=== PATIENT | female | born 1960 | race Asian ===

== ENCOUNTER 2016-11-09 01:25 | Emergency (ER) | payer OTHER | END 2016-11-09 03:24 | disposition home or self-care (01) | DX: R07.9 Chest pain, unspecified (principal); I10 Essential (primary) hypertension; E11.9 Type 2 diabetes mellitus without complications; E03.9 Hypothyroidism, unspecified ==

== ENCOUNTER 2016-11-26 09:51 | Outpatient (CLI) | payer OTHER | END 2016-11-26 09:52 | disposition home or self-care (01) | DX: E11.9 Type 2 diabetes mellitus without complications (principal) ==

== ENCOUNTER 2017-02-23 15:13 | Outpatient (CLI) | payer OTHER ==
--- NOTE | 2017-02-24 09:33 | XRAY Report ---
TWO VIEW CHEST: 02/23/2017 CLINICAL INDICATION: Left chest wall contusion. COMPARISON: 11/09/2016. FINDINGS: Frontal and lateral views of the chest demonstrate a normal cardiac silhouette. The lungs remain clear. No effusion or pneumothorax is present. IMPRESSION: NORMAL CHEST. JOB #: [id number] EXT JOB #:[id number]
== END 2017-02-23 15:14 | disposition home or self-care (01) ==
LOC: DI.N 15:13
PROVIDERS: ATTEND Family Medicine
DX: S20.222D Contusion of left back wall of thorax, subsequent encounter (principal)
CPT/HCPCS: 71020

== ENCOUNTER 2017-03-03 13:03 | Outpatient (CLI) | payer OTHER ==
[2017-03-03 19:32] LABS: CALCIUM 9.6 mg/dL (8.5-10.3); CREATININE 0.9 mg/dL (0.4-1.0)
[2017-03-03 20:36] LABS: HEMOGLOBIN A1C 0.7 g/dL
== END 2017-03-03 23:59 | disposition home or self-care (01) ==
LOC: LAB.N 13:03
PROVIDERS: ATTEND Family Medicine
DX: E11.9 Type 2 diabetes mellitus without complications (principal)
CPT/HCPCS: 36415; 80048; 83036

== ENCOUNTER 2017-06-20 14:58 | Outpatient (CLI) | payer OTHER ==
[2017-06-20 13:24] LABS: HEMOGLOBIN A1C 0.64 g/dL
[2017-06-20 13:30] LABS: THYROID STIMULATING HORMONE 0.93 uIU/mL (0.34-5.60)
[2017-06-20 13:31] LABS: CALCIUM 9.5 mg/dL (8.5-10.3); CREATININE 1.1 mg/dL (0.4-1.0); POTASSIUM 3.7 mmol/L (3.5-5.0)
== END 2017-06-20 14:59 | disposition home or self-care (01) ==
LOC: LAB.N 14:58
PROVIDERS: ATTEND Family Medicine
DX: E11.9 Type 2 diabetes mellitus without complications (principal); E03.9 Hypothyroidism, unspecified
CPT/HCPCS: 36415; 80048; 83036; 84439; 84443

== ENCOUNTER 2017-10-18 15:27 | Outpatient (CLI) | payer OTHER ==
[2017-10-18 19:23] LABS: CALCIUM 9.2 mg/dL (8.5-10.3); CREATININE 0.9 mg/dL (0.4-1.0)
[2017-10-18 19:34] LABS: HB2 TOTAL 14.5 g/dL; HEMOGLOBIN A1C 0.64 g/dL; HEMOGLOBIN A1C % 6.2 % (4.6-6.2)
== END 2017-10-18 15:28 ==
LOC: LAB.N 15:27
PROVIDERS: ATTEND Family Medicine
DX: E11.9 Type 2 diabetes mellitus without complications (principal)
CPT/HCPCS: 36415; 80048; 83036

== ENCOUNTER 2018-01-27 13:01 | Outpatient (CLI) | payer OTHER ==
[2018-01-27 14:03] LABS: HEMOGLOBIN A1C 0.69 g/dL; HEMOGLOBIN A1C % 6.4 % (4.6-6.2)
[2018-01-27 14:21] LABS: CALCIUM 9.5 mg/dL (8.5-10.3); CREATININE 0.9 mg/dL (0.4-1.0)
[2018-01-27 15:10] LABS: THYROID STIMULATING HORMONE 2.27 uIU/mL (0.34-5.60)
[2018-01-27 15:12] LABS: FREE T4 (FREE THYROXINE) 0.88 ng/dL (0.58-1.64)
== END 2018-01-27 13:02 | disposition home or self-care (01) ==
LOC: LAB 13:01
PROVIDERS: ATTEND Family Medicine
DX: E03.9 Hypothyroidism, unspecified (principal); E11.9 Type 2 diabetes mellitus without complications
CPT/HCPCS: 36415; 80048; 83036; 84439; 84443

== ENCOUNTER 2018-05-03 13:56 | Outpatient (CLI) | payer OTHER ==
[2018-05-03 19:11] LABS: CALCIUM 9.5 mg/dL (8.5-10.3); CREATININE 0.9 mg/dL (0.4-1.0)
[2018-05-03 20:58] LABS: HB2 TOTAL 14.7 g/dL; HEMOGLOBIN A1C 0.67 g/dL; HEMOGLOBIN A1C % 6.3 % (4.6-6.2)
== END 2018-05-03 13:57 ==
LOC: LAB.N 13:56
PROVIDERS: ATTEND Family Medicine
DX: E11.9 Type 2 diabetes mellitus without complications (principal)
CPT/HCPCS: 36415; 80048; 83036

== ENCOUNTER 2018-08-11 07:59 | Outpatient (CLI) | payer OTHER ==
[2018-08-11 09:02] LABS: CALCIUM 9.6 mg/dL (8.5-10.3); CREATININE 0.9 mg/dL (0.4-1.0)
[2018-08-11 09:10] LABS: HEMOGLOBIN A1C 0.75 g/dL; HEMOGLOBIN A1C % 6.4 % (4.6-6.2)
[2018-08-11 09:23] LABS: THYROID STIMULATING HORMONE 2.37 uIU/mL (0.34-5.60)
== END 2018-08-11 08:00 | disposition home or self-care (01) ==
LOC: LAB 07:59
PROVIDERS: ATTEND Nurse Practitioner
DX: E11.9 Type 2 diabetes mellitus without complications (principal); E03.9 Hypothyroidism, unspecified; C73 Malignant neoplasm of thyroid gland; E89.0 Postprocedural hypothyroidism
CPT/HCPCS: 36415; 80048; 83036; 84432; 84439; 84443; 86800

== ENCOUNTER 2018-12-01 06:35 | Outpatient (CLI) | payer OTHER ==
[2018-12-01 07:10] LABS: CALCIUM 9.1 mg/dL (8.5-10.3); CREATININE 0.8 mg/dL (0.4-1.0)
[2018-12-01 07:19] LABS: HEMOGLOBIN A1C 0.69 g/dL; HEMOGLOBIN A1C % 6.4 % (4.6-6.2)
== END 2018-12-01 06:36 | disposition home or self-care (01) ==
LOC: LAB 06:35
PROVIDERS: ATTEND Family Medicine
DX: E11.9 Type 2 diabetes mellitus without complications (principal)
CPT/HCPCS: 36415; 80048; 83036

== ENCOUNTER 2019-01-16 15:41 | Outpatient (CLI) | payer OTHER ==
--- NOTE | 2019-01-17 09:26 | Mammography Report ---
Reason: MAMMOGRAPHIC SCREENING FOR BREAST CANCER Procedure Date: 01/16/2019 Accession Number: [id number] / [id number] Procedure: SHON - Screening Mammo w/Jr CPT Code: FULL RESULT: EXAM: Screening Mammo w/Jr DATE: 01/16/2019 4:19 PM CLINICAL HISTORY: Screening encounter. History of right breast biopsy in 2011, negative pathology results. TECHNIQUE: (B) - Bilateral CC and MLO views were obtained. COMPARISON: 12/08/2015 through 06/08/2012. PARENCHYMAL PATTERN: (D) - The breast(s) demonstrate(s) heterogeneously dense fibroglandular parenchyma. FINDINGS: A biopsy clip in the right breast is stable. There are coarse typically benign calcifications. There are no suspicious masses, calcifications, or areas of distortion. IMPRESSION: Benign findings. BI-RADS category 2. RECOMMENDATION: (ANNUAL) - Recommend routine annual screening mammography. BI-RADS CATEGORY: (2) - Benign Findings. STANDARD QUALIFYING STATEMENTS: 1. This examination was not reviewed with the aid of Computer-Aided Detection (CAD). 2. A negative or benign imaging report should not preclude biopsy if clinically suspicious findings are present. 3. Dense breasts may obscure an underlying neoplasm. 4. This examination was reviewed with the aid of 3D breast imaging (tomosynthesis).
== END 2019-01-16 15:42 | disposition home or self-care (01) ==
LOC: DI 15:41
PROVIDERS: ATTEND Nurse Practitioner
DX: Z12.31 Encounter for screening mammogram for malignant neoplasm of breast (principal)
CPT/HCPCS: 77063; 77067

== ENCOUNTER 2019-06-15 08:59 | Outpatient (CLI) | payer OTHER ==
[2019-06-15 09:26] LABS: CALCIUM 9.7 mg/dL (8.5-10.3)
[2019-06-15 09:51] LABS: CREATININE,URINE 119.9 mg/dL; HEMOGLOBIN A1C 0.7 g/dL; HEMOGLOBIN A1C % 6.2 % (4.6-6.2); MICROALBUM/CREATININE RATIO,UR 12.5 ug/mg (<30.0); MICROALBUMIN,URINE 1.5 mg/dL (0-300.0)
== END 2019-06-15 09:00 | disposition home or self-care (01) ==
LOC: LAB 08:59
PROVIDERS: ATTEND Family Medicine
DX: E11.9 Type 2 diabetes mellitus without complications (principal); E03.9 Hypothyroidism, unspecified
CPT/HCPCS: 36415; 80048; 82043; 82570; 83036; 84443

== ENCOUNTER 2019-12-16 04:33 | Emergency (ER) | payer OTHER ==
[2019-12-16 04:56] LABS: BASOPHILS # (AUTO) 0.1 10^3/uL (0.0-0.1); BASOPHILS % (AUTO) 0.8 %; EOSINOPHILS # (AUTO) 0.3 10^3/uL (0.0-0.7); EOSINOPHILS % (AUTO) 3.4 %; LYMPHOCYTES # (AUTO) 2.7 10^3/uL (1.5-3.5); LYMPHOCYTES % (AUTO) 34.9 %; MEAN CORPUSCULAR HEMOGLOBIN 30.6 pg (27.0-31.0); MEAN CORPUSCULAR HGB CONC 33.7 g/dL (32.0-36.0); MEAN CORPUSCULAR VOLUME 90.8 fL (81.0-99.0); MEAN PLATELET VOLUME 9.3 fL (7.9-10.8); MONOCYTES # (AUTO) 0.7 10^3/uL (0.0-1.0); MONOCYTES % (AUTO) 8.3 %; NEUTROPHILS # (AUTO) 4.1 10^3/uL (1.5-6.6); NEUTROPHILS % (AUTO) 52.2 %; PLT - PLATELET COUNT 203 10^3/uL (130-450); RED CELL DISTRIBUTION WIDTH 12.3 % (12.0-15.0); WHITE BLOOD COUNT 7.9 x10^3/uL (4.8-10.8)
[2019-12-16] MEDS ORDERED: diazePAM INJ 5 MG/ML SYRINGE IVP STA (05:04)
[2019-12-16] MEDS ORDERED: SODIUM CHLORIDE 0.9% 1,000 ML IV ONE (05:04)
[2019-12-16 05:09] LABS: ALBUMIN 4.4 g/dL (3.2-5.5); ALBUMIN/GLOBULIN RATIO 1.1 (1.0-2.2); CALCIUM 9.2 mg/dL (8.5-10.3); CREATININE 0.8 mg/dL (0.4-1.0); TOTAL PROTEIN 8.5 g/dL (6.7-8.2)
[2019-12-16] MEDS ORDERED: ONDANSETRON 4 MG/2 ML VIAL IVP STA (06:05)
[2019-12-16] MEDS ORDERED: MECLIZINE 12.5 MG TABLET PO STA (06:05)
--- NOTE | 2019-12-16 06:08 | CT Report ---
Reason: vertigo Procedure Date: 12/16/2019 Accession Number: [id number] / [id number] Procedure: CT - HEAD WO CPT Code: Final Report FULL RESULT: EXAM: CT HEAD EXAM DATE: 12/16/2019 05:56 AM. CLINICAL HISTORY: Vertigo. COMPARISON: CT HEAD W/O 11/09/2013. TECHNIQUE: Multiaxial CT images were obtained from the foramen magnum to the vertex. Reformats: Sagittal and coronal. IV contrast: None. In accordance with CT protocol optimization, one or more of the following dose reduction techniques were utilized for this exam: automated exposure control, adjustment of mA and/or KV based on patient size, or use of iterative reconstructive technique. FINDINGS: Parenchyma: No intraparenchymal hemorrhage. No evidence of mass, midline shift, or CT findings of infarction. Hurst-white differentiation is distinct. Extraaxial Spaces: Normal for age. No subdural or epidural collections identified. Ventricles: Normal in size and position. Sinuses and Orbits: Imaged paranasal sinuses, orbits, and mastoids show no significant abnormality. Bones: No evidence of fracture or calvarial defect. IMPRESSION: Normal head CT. RADIA
--- NOTE | 2019-12-16 06:35 | ED Physician Documentation ---
History of Present Illness - Stated complaint Stated Complaint: DIZZY - Chief complaint Chief Complaint: Neuro - History obtained from History obtained from: Patient - Additonal information Additional information: Patient comes emergency department complaining of a feeling of "dizziness" that started when she got up to go the bathroom. Patient states that she has never had anything like this before. She is feels as though the room is spinning, and states it is especially bad when she gets up or when she turns her head to either side. Patient states that she does not have any weakness in her arms or legs. No difficulty with coordination, other than that she is completely disoriented when the vertigo occurs. Patient denies nausea or vomiting. No chest pain. Patient is not short of breath, but states that she did begin to feel anxious when the dizziness occurred, and she states that that did make her feel somewhat short of breath. Patient denies any other complaints at this time. Review of Systems Ten Systems: 10 systems reviewed and negative Constitutional: reports: Reviewed and negative Eyes: reports: Reviewed and negative Ears: reports: Reviewed and negative Nose: reports: Reviewed and negative Throat: reports: Reviewed and negative Cardiac: reports: Reviewed and negative Respiratory: reports: Reviewed and negative GI: reports: Reviewed and negative : reports: Reviewed and negative Skin: reports: Reviewed and negative Musculoskeletal: reports: Reviewed and negative Neurologic: reports: Other (Vertigo) Psychiatric: reports: Reviewed and negative Endocrine: reports: Reviewed and negative Immunocompromised: reports: Reviewed and negative PD PAST MEDICAL HISTORY - Past Medical History Cardiovascular: Hypertension Endocrine/Autoimmune: Type 2 diabetes, HyPOthyroidism Psych: Eating disorder Musculoskeletal: Chronic back pain - Past Surgical History Past Surgical History: Yes - Present Medications Home Medications: Ambulatory Orders Medication Instructions Recorded Confirmed Cholecalciferol (Vitamin D3) 2,000 unit PO DAILY 03/01/13 12/05/15 [Vitamin D] Ibuprofen 600 mg PO Q8HR PRN 03/01/13 12/05/15 Levothyroxine [Synthroid] 88 mcg PO QDAC 03/01/13 12/05/15 Metoprolol Succinate 12.5 mg PO BID 03/01/13 12/05/15 Ondansetron Odt [Zofran] 4 mg TL Q6H PRN #10 tablet 12/05/15 metFORMIN [Glucophage] 500 mg PO DAILY 12/05/15 12/05/15 LORazepam [Ativan] 0.5 - 1 mg PO Q6H PRN #20 tablet 11/09/16 Meclizine [Antivert] 25 mg PO Q6H PRN 10 Days #40 tablet 12/16/19 - Allergies Allergies/Adverse Reactions: Allergies Allergy/AdvReac Type Severity Reaction Status Date / Time No Known Drug Allergies Allergy Verified 11/09/16 01:38 - Social History Does the pt smoke?: No Smoking Status: Never smoker Does the pt drink ETOH?: No Does the pt have substance abuse?: No - Immunizations Immunizations are current?: Yes - POLST Patient has POLST: No PD ED PE NORMAL - Vitals Vital signs reviewed: Yes - General General: Alert and oriented X 3, No acute distress - HEENT HEENT: Atraumatic, PERRL, EOMI, Moist mucous membranes - Neck Neck: Supple, no meningeal sign - Cardiac Cardiac: RRR, No murmur - Respiratory Respiratory: No respiratory distress, Clear bilaterally - Abdomen Abdomen: Soft, Non tender, Non distended - Derm Derm: Warm and dry - Extremities Extremities: No deformity, Normal ROM s pain, No edema, No calf tenderness / cord - Neuro Neuro: Alert and oriented X 3, jail keeper 2-12 intact, No motor deficit, No sensory deficit, Normal speech, Other (Patient complains of vertigo when she is brought to a sitting position from supine.) - Psych Psych: Normal mood, Normal affect Results - Vitals Vitals: Oxygen O2 Source Room air - Labs Labs: Laboratory Tests 12/16/19 12/16/19 04:50 04:50 WBC 7.9 RBC 4.90 Hgb 15.0 Hct 44.5 MCV 90.8 MCH 30.6 MCHC 33.7 RDW 12.3 Plt Count 203 MPV 9.3 Neut # (Auto) 4.1 Lymph # (Auto) 2.7 [place] # (Auto) 0.7 Eos # (Auto) 0.3 Baso # (Auto) 0.1 Absolute Nucleated RBC 0.00 Nucleated RBC % 0.0 Sodium 139 Potassium 3.6 Chloride 105 Carbon Dioxide 26 Anion Gap 8.0 BUN 20 Creatinine 0.8 Estimated GFR (MDRD) 74 L Glucose 132 H Calcium 9.2 Total Bilirubin 1.0 AST 34 ALT 30 Alkaline Phosphatase 48 Total Protein 8.5 H Albumin 4.4 Globulin 4.1 Albumin/Globulin Ratio 1.1 Lipase 52 H - Rads (name of study) CT head Radiology: Final report received, EMP read indepedently, See rad report (Negative head CT.) PD MEDICAL DECISION MAKING - ED course Complexity details: reviewed results, re-evaluated patient, considered differential, d/w patient ED course: Patient was evaluated with labs and CT scan of the head, which were unremarkable. She was treated first with IV fluids and Valium and then given a p.o. dose of meclizine. The patient reported feeling much better and reported complete resolution of her vertigo. She was able to ambulate in the emergency department without difficulty and without assistance. I discussed with her that her symptoms are most consistent with a benign positional vertigo. We have discussed the usual etiologies of this as well as the timeline for resolution. I have prescribed meclizine for her to have at home. Patient's will drive her home. We have discussed the usual indications for return. Departure - Departure Disposition: Home, Self Care Clinical Impression: Benign paroxysmal positional vertigo Qualifiers: Laterality: unspecified laterality Qualified Code(s): H81.10 - Benign paroxysmal vertigo, unspecified ear Condition: Good Instructions: ED BPV Vertigo Prescriptions: Meclizine [Antivert] 25 mg PO Q6H PRN 10 Days #40 tablet PRN Reason: Dizziness Comments: Your labs look good. Your CT scan does not show any sign of a stroke. Most likely, your positional dizziness is caused by a common condition of the inner ear, in which calcium deposits way on the nerves and cause them to send in appropriate signals of movement to the brain.This is a fairly common condition, and specially in patients over 50. Fortunately, the episodes of dizziness rarely last more than a week or two. You may take the medication prescribed, as needed for the dizziness. Discharge Date/Time: 12/16/19 06:48
[2019-12-16 06:49] VITALS: BP 154/80
== END 2019-12-16 06:48 | disposition home or self-care (01) ==
LOC: ED 04:33
DX: H81.10 Benign paroxysmal vertigo, unspecified ear (principal); I10 Essential (primary) hypertension; E11.9 Type 2 diabetes mellitus without complications; Z79.84 Long term (current) use of oral hypoglycemic drugs
CPT/HCPCS: 36415; 70450; 80053; 83690; 85025; 93005; 96361; 96374; 96375; 99283; 99284; A9270

== ENCOUNTER 2020-01-17 09:00 | Outpatient (CLI) | payer OTHER ==
[2020-01-17 13:20] LABS: BASOPHILS % (AUTO) 0.7 %; EOSINOPHILS # (AUTO) 0.2 10^3/uL (0.0-0.7); EOSINOPHILS % (AUTO) 3.7 %; HGB - HEMOGLOBIN 14.4 g/dL (12.0-16.0); LYMPHOCYTES # (AUTO) 1.9 10^3/uL (1.5-3.5); LYMPHOCYTES % (AUTO) 32.3 %; MEAN CORPUSCULAR HEMOGLOBIN 29.4 pg (27.0-31.0); MEAN CORPUSCULAR HGB CONC 32.2 g/dL (32.0-36.0); MEAN CORPUSCULAR VOLUME 91.2 fL (81.0-99.0); MEAN PLATELET VOLUME 10.2 fL (7.9-10.8); MICROALBUM/CREATININE RATIO,UR 19.2 ug/mg (<30.0); MICROALBUMIN,URINE 1.5 mg/dL (0-300.0); MONOCYTES # (AUTO) 0.5 10^3/uL (0.0-1.0); MONOCYTES % (AUTO) 8.7 %; NEUTROPHILS # (AUTO) 3.1 10^3/uL (1.5-6.6); NEUTROPHILS % (AUTO) 54.3 %; PLT - PLATELET COUNT 216 10^3/uL (130-450); RED CELL DISTRIBUTION WIDTH 12.8 % (12.0-15.0); WHITE BLOOD COUNT 5.8 x10^3/uL (4.8-10.8)
[2020-01-17 13:43] LABS: HB2 TOTAL 15.4 g/dL; HEMOGLOBIN A1C 0.67 g/dL; HEMOGLOBIN A1C % 6.1 % (4.6-6.2)
[2020-01-17 13:49] LABS: BUN - BLOOD UREA NITROGEN 22 mg/dL (6-20); CALCIUM 9.6 mg/dL (8.5-10.3); CARBON DIOXIDE - CO2 28 mmol/L (21-32); CHLORIDE 104 mmol/L (101-111); CHOLESTEROL 210 mg/dL; CREATININE 0.9 mg/dL (0.4-1.0); GLUCOSE 102 mg/dL (70-100); HDL CHOLESTEROL 52 mg/dL; LDL CHOLESTEROL,CALCULATED 140 mg/dL; LDL/HDL RATIO 2.7 (<4.4); SODIUM 137 mmol/L (135-145); VLDL CHOLESTEROL 18 mg/dL
== END 2020-01-17 23:59 | disposition home or self-care (01) ==
LOC: LAB.WCP 09:00
PROVIDERS: ATTEND Family Medicine
DX: E11.9 Type 2 diabetes mellitus without complications (principal); R00.2 Palpitations
CPT/HCPCS: 36415; 80048; 80061; 82043; 82570; 83036; 83721; 85025

== ENCOUNTER 2020-03-09 03:42 | Emergency (ER) | payer OTHER ==
--- NOTE | 2020-03-09 03:52 | ED Physician Documentation ---
PD HPI ABD PAIN - Stated complaint Stated Complaint: VOMITING/AB PX - History obtained from History obtained from: Patient, Family - History of Present Illness Timing - onset: Last night Timing - details: Abrupt onset Pain level now: 3 Quality: Cramping Location: All over / everywhere Radiation: Other (no radiation) Improved by: Other (nothing) Worsened by: Palpation Associated symptoms: Nausea, Vomiting, Diarrhea. No: Fever, Melena, Dean tochezia Recently seen: Not recently seen Review of Systems Constitutional: denies: Fever, Chills, Sweats Cardiac: reports: Reviewed and negative Respiratory: reports: Reviewed and negative GI: reports: Abdominal Pain, Nausea, Vomiting, Diarrhea. denies: Abdominal Swelling, Hematemesis, Bloody / black stool : denies: Dysuria, Frequency Musculoskeletal: denies: Back pain PD PAST MEDICAL HISTORY - Past Medical History Cardiovascular: Hypertension Endocrine/Autoimmune: Type 2 diabetes, HyPOthyroidism Psych: Eating disorder Musculoskeletal: Chronic back pain - Past Surgical History Past Surgical History: Yes - Present Medications Home Medications: Ambulatory Orders Medication Instructions Recorded Confirmed Cholecalciferol (Vitamin D3) 2,000 unit PO DAILY 03/01/13 12/05/15 [Vitamin D] Ibuprofen 600 mg PO Q8HR PRN 03/01/13 12/05/15 Levothyroxine [Synthroid] 88 mcg PO QDAC 03/01/13 12/05/15 Metoprolol Succinate 12.5 mg PO BID 03/01/13 12/05/15 Ondansetron Odt [Zofran] 4 mg TL Q6H PRN #10 tablet 12/05/15 metFORMIN [Glucophage] 500 mg PO DAILY 12/05/15 12/05/15 LORazepam [Ativan] 0.5 - 1 mg PO Q6H PRN #20 tablet 11/09/16 Meclizine [Antivert] 25 mg PO Q6H PRN 10 Days #40 tablet 12/16/19 Diphenoxylate/Atropine [Lomotil] 1 each PO QID PRN #10 tablet 03/09/20 Ondansetron Odt [Zofran] 4 mg TL Q6H PRN #10 tablet 03/09/20 - Allergies Allergies/Adverse Reactions: Allergies Allergy/AdvReac Type Severity Reaction Status Date / Time No Known Drug Allergies Allergy Verified 11/09/16 01:38 - Social History Does the pt smoke?: No Smoking Status: Never smoker Does the pt drink ETOH?: No Does the pt have substance abuse?: No - Immunizations Immunizations are current?: Yes - POLST Patient has POLST: No PD ED PE NORMAL - Vitals Vital signs reviewed: Yes - General General: Alert and oriented X 3, No acute distress, Well developed/nourished - HEENT HEENT: Moist mucous membranes - Neck Neck: Supple, no meningeal sign - Cardiac Cardiac: RRR, No murmur - Respiratory Respiratory: No respiratory distress, Clear bilaterally - Abdomen Abdomen: Soft, Non distended, Other (mild TTP across lower abdomen, most pronounced LLQ; no guarding , no rebound) - Back Back: No CVA TTP - Derm Derm: Normal color, Warm and dry, No rash - Extremities Extremities: No edema Results - Vitals Vitals: Vital Signs - 24 hr 03/09/20 03/09/20 03:45 06:30 Temperature 36.3 C L Heart Rate 88 72 Respiratory 18 16 Rate Blood Pressure 175/67 H 168/101 H O2 Saturation 98 97 Oxygen O2 Source Room air - Labs Labs: Laboratory Tests 03/09/20 03/09/20 03/09/20 04:05 04:05 04:05 WBC 19.8 H RBC 4.90 Hgb 15.2 Hct 44.7 MCV 91.2 MCH 31.0 MCHC 34.0 RDW 12.6 Plt Count 218 MPV 9.5 Neut # (Auto) 17.0 H Lymph # (Auto) 1.3 L [place] # (Auto) 1.1 H Eos # (Auto) 0.2 Baso # (Auto) 0.1 Absolute Nucleated RBC 0.00 Nucleated RBC % 0.0 Sodium 138 Potassium 3.4 L Chloride 103 Carbon Dioxide 25 Anion Gap 10.0 BUN 17 Creatinine 1.1 H Estimated GFR (MDRD) 51 L Glucose 134 H Calcium 9.7 Total Bilirubin 0.7 AST 27 ALT 29 Alkaline Phosphatase 46 Total Protein 8.0 Albumin 4.3 Globulin 3.7 Albumin/Globulin Ratio 1.2 Lipase 57 H Urine Color YELLOW Urine Clarity CLEAR Urine pH 5.0 Ur Specific [place] >=1.030 H Urine Protein NEGATIVE Urine Glucose (UA) NEGATIVE Urine Ketones NEGATIVE Urine Occult Blood SMALL H Urine Nitrite NEGATIVE Urine Bilirubin NEGATIVE Urine Urobilinogen 0.2 (NORMAL) Ur Leukocyte Esterase SMALL H Urine RBC 0-5 Urine WBC 4-5 Ur Squamous Epith Cells MOD Squamous H Urine Bacteria Few Urine Yeast PRESENT Ur Microscopic Review INDICATED Urine Culture Comments NOT INDICATED - Rads (name of study) CT A/P Radiology: Prelim report reviewed, See rad report PD MEDICAL DECISION MAKING - ED course Complexity details: reviewed results, re-evaluated patient, considered differential, d/w patient Departure - Departure Disposition: 01 Home, Self Care Clinical Impression: Diarrhea Condition: Good Instructions: ED Diet Vomiting Diarrhea, ED Vomiting Diarrhea Nonspecific Ad Follow-Up: LUCAS RIVERA MD [Primary Care Provider] - Within 1 week Prescriptions: Diphenoxylate/Atropine [Lomotil] 1 each PO QID PRN #10 tablet PRN Reason: Diarrhea Ondansetron Odt [Zofran] 4 mg TL Q6H PRN #10 tablet PRN Reason: Nausea / Vomiting Forms: Activity restrictions Discharge Date/Time: 03/09/20 06:30
[2020-03-09] MEDS ORDERED: ONDANSETRON 4 MG/2 ML VIAL IVP STA (04:22)
[2020-03-09] MEDS ORDERED: SODIUM CHLORIDE 0.9% 1,000 ML IV STA (04:22)
[2020-03-09] MEDS ORDERED: KETOROLAC 30 MG/ML VIAL IVP STA (04:22)
[2020-03-09 04:31] LABS: BASOPHILS # (AUTO) 0.1 10^3/uL (0.0-0.1); BASOPHILS % (AUTO) 0.4 %; EOSINOPHILS # (AUTO) 0.2 10^3/uL (0.0-0.7); HGB - HEMOGLOBIN 15.2 g/dL (12.0-16.0); LYMPHOCYTES # (AUTO) 1.3 10^3/uL (1.5-3.5); LYMPHOCYTES % (AUTO) 6.5 %; MEAN CORPUSCULAR VOLUME 91.2 fL (81.0-99.0); MEAN PLATELET VOLUME 9.5 fL (7.9-10.8); MONOCYTES # (AUTO) 1.1 10^3/uL (0.0-1.0); MONOCYTES % (AUTO) 5.7 %; NEUTROPHILS % (AUTO) 85.8 %; PLT - PLATELET COUNT 218 10^3/uL (130-450); RED CELL DISTRIBUTION WIDTH 12.6 % (12.0-15.0); WHITE BLOOD COUNT 19.8 x10^3/uL (4.8-10.8)
[2020-03-09 04:36] LABS: BILIRUBIN,URINE NEGATIVE (NEGATIVE); GLUCOSE, URINE (UA) NEGATIVE (NEGATIVE); KETONES,URINE (UA) NEGATIVE (NEGATIVE); LEUKOCYTE ESTERASE, URINE SMALL (NEGATIVE); NITRITE,URINE NEGATIVE (NEGATIVE); OCCULT BLOOD,URINE SMALL (NEGATIVE); PROTEIN,URINE NEGATIVE (NEGATIVE); UROBILINOGEN,URINE 0.2 (NORMAL) E.U./dL (NORMAL)
[2020-03-09 04:39] LABS: CLARITY,URINE CLEAR (CLEAR)
[2020-03-09] MEDS ORDERED: IOVERSOL 320 100 ML VIAL IVP ONE ×2 (04:40→05:33)
[2020-03-09 04:48] LABS: ALBUMIN 4.3 g/dL (3.2-5.5); ALBUMIN/GLOBULIN RATIO 1.2 (1.0-2.2); BILIRUBIN,TOTAL 0.7 mg/dL (0.2-1.0); CALCIUM 9.7 mg/dL (8.5-10.3); CREATININE 1.1 mg/dL (0.4-1.0)
[2020-03-09 04:57] LABS: BACTERIA,URINE Few /HPF (None Seen); RBC,URINE 0-5 /HPF (0-5); SQUAMOUS EPITHELIAL CELL,UR MOD Squamous (<= Few)
[2020-03-09 04:58] LABS: YEAST,URINE PRESENT
[2020-03-09] MEDS ORDERED: DIPHENOX/ATROPINE 2.5/0.025 MG TABLET PO STA (06:19)
[2020-03-09 06:30] VITALS: BP 168/101
--- NOTE | 2020-03-09 08:48 | CT Report ---
PROCEDURE: Abdomen/Pelvis W INDICATIONS: abd. pain, LLQ CONTRAST: IV CONTRAST: Optiray 320 ml: 100 PO CONTRAST: *NO PO CONTRAST TECHNIQUE: After the administration of oral and intravenous contrast, 5 mm thick sections acquired from the diap hragms to the symphysis. 5 mm thick coronal and sagittal reformats were acquired. For radiation dos e reduction, the following was used: automated exposure control, adjustment of mA and/or kV accordin g to patient size. COMPARISON: None. FINDINGS: Image quality: Adequate. There is respiratory motion throughout much of the exam.. ABDOMEN: Lung bases: Lung bases are clear given respiratory motion to the lower lungs. Heart size is normal. Small hiatal hernia is present. Solid organs: Liver and spleen are normal in size and enhancement. Gallbladder is unremarkable Sukhjinder iary system is non dilated. Pancreas enhances normally. No adrenal nodules. Kidneys demonstrate no rmal size and enhancement, without hydronephrosis. There is an exophytic 2.5 cm cyst arising from th e right kidney. Peritoneum and bowel: Bowel loops demonstrate normal wall thickness and caliber. No free fluid or a ir. Nodes and vessels: No retroperitoneal or mesenteric adenopathy by size criteria. Aorta and inferior vena cava are normal in size. Miscellaneous: No ventral hernias. PELVIS: Genitourinary: Bladder wall thickness is normal. Miscellaneous: No inguinal hernias or adenopathy. Bones: No suspicious bony lesions. Healed left pelvic fractures. Severe facet degeneration in the l ow lumbar spine. No vertebral body compression fractures. IMPRESSION: 1. No CT evidence of acute process. 2. No acute diverticulitis. 3. Small hiatal hernia. 4. Right renal cyst. 5. Concordant with preliminary report. Reviewed by: Ghazal Camacho MD on 03/09/2020 8:47 AM PDT Approved by: Ghazal Camacho MD on 03/09/2020 8:47 AM PDT Station ID: [id number]
== END 2020-03-09 06:30 | disposition home or self-care (01) ==
LOC: ED 03:42
DX: R19.7 Diarrhea, unspecified (principal); R11.2 Nausea with vomiting, unspecified; R10.32 Left lower quadrant pain; K44.9 Diaphragmatic hernia without obstruction or gangrene; N28.1 Cyst of kidney, acquired; I10 Essential (primary) hypertension; E11.9 Type 2 diabetes mellitus without complications; Z79.84 Long term (current) use of oral hypoglycemic drugs
CPT/HCPCS: 36415; 74177; 80053; 81001; 83690; 85025; 96361; 96374; 99283; 99284; A9270; Q9967; 81003; 87086

== ENCOUNTER 2020-04-17 10:23 | Outpatient (CLI) | payer OTHER ==
--- NOTE | 2020-04-20 14:30 | Mammography Report ---
BILATERAL DIGITAL SCREENING MAMMOGRAM 3D/2D: 04/17/2020 CLINICAL: Routine screening. Comparison is made to exams dated: 01/16/2019 mammogram, 12/08/2015 mammogram, 09/05/2014 mammogram, 12/13/2012 mammogram, and 06/22/2012 mammogram - [facility]. There are scattered fibro glandular elements in both breasts. No significant masses, calcifications, or other findings are seen in either breast. There has been no significant interval change. IMPRESSION: NEGATIVE There is no mammographic evidence of malignancy. A 1 year screening mammogram is recommended. This exam was interpreted at Station ID: [id number]. NOTE: For mammograms, a report in lay terms will be sent to the patient. Approximately 15% of breast malignancies will not be visualized mammographically. In the management of a palpable breast mass, a negative mammogram must not discourage biopsy of a clinically suspicious lesion. Electronically Signed By: Rome Ku M.D., jr/eron:04/17/2020 11:23:48 ACR BI-RADS Category 1: Negative 3341F B -Scattered fibroglandular 1 Mammogram [id number] 1 year screening B
== END 2020-04-17 10:24 | disposition home or self-care (01) ==
LOC: DI.N 10:23
PROVIDERS: ATTEND Family Medicine
DX: Z12.31 Encounter for screening mammogram for malignant neoplasm of breast (principal)
CPT/HCPCS: 77063; 77067

== ENCOUNTER 2020-08-21 13:49 | Outpatient (CLI) | payer OTHER | END 2020-08-21 13:50 | disposition home or self-care (01) | LOC: COV 13:49 | PROVIDERS: ATTEND Ophthalmology | DX: Z01.812 Encounter for preprocedural laboratory examination (principal); H25.811 Combined forms of age-related cataract, right eye; E11.9 Type 2 diabetes mellitus without complications; Z20.828 Contact with and (suspected) exposure to other viral communicable diseases ==

== ENCOUNTER 2020-08-27 07:26 | Day surgery (SDC) | payer OTHER ==
[~2020-08-27 07:26] MED LIST: KETOROLAC 0.45% OPHTH DROPS ONE; PHENYLEPHRINE 2.5% OPHTH 2 ML DROPS ONE; PROPARACAINE 0.5% OPHTH DROPS 15 ML ONE
[2020-08-27] MEDS ORDERED: CYCLOPENTOLATE 2% OPHTH DROPS 2 ML RIGHTEYE ONE (07:40)
[2020-08-27] MEDS ORDERED: LACTATED RINGERS 500 ML IV ONE ×2 (07:41→08:44)
--- NOTE | 2020-08-27 07:48 | ANESTHESIA ---
Pre-Anesthesia VS, & Labs - Diagnosis R senile combined cataract - Procedure extraction R cataract w/IOL Height: 5 ft - NPO >8 hours - Is Patient ?: No - Lab Results Lab results reviewed: Yes Home Medications and Allergies Cholecalciferol (Vitamin D3) [Vitamin D] 2,000 unit PO DAILY 03/01/13 Ibuprofen 600 mg PO Q8HR PRN 03/01/13 Levothyroxine [Synthroid] 88 mcg PO QDAC 03/01/13 Metoprolol Succinate 12.5 mg PO BID 03/01/13 metFORMIN [Glucophage] 500 mg PO DAILY 12/05/15 Allergies/Adverse Reactions: Allergies Allergy/AdvReac Type Severity Reaction Status Date / Time No Known Drug Allergies Allergy Verified 08/26/20 13:21 Anes History & Medical History - Anesthetic History Anesthesia Complications: reports: No previous complications Family history of Anesthesia Complications: Denies Family history of Malignant Hyperthermia: Denies - Medical History Cardiovascular: reports: Hypertension Gastrointestinal: reports: GERD Musculoskeletal: reports: Chronic back pain Endocrine/Autoimmune: reports: Type 2 diabetes, HyPOthyroidism Smoking Status: Never smoker History of Cancer?: Yes (thyroidectomy 2009) Exam General: Alert, Oriented x3, No acute distress Dental: WNL Mouth Openin Fingerbreadth Neck Mobility: Normal Mallampati classification: II Respiratory: Lungs clear, Normal breath sounds, No respiratory distress Cardiovascular: Regular rate (bradycardia 50ish) Neurological: Normal speech Mental/Cognitive Status: Alert/Oriented X3, Normal for patient Cognitive Status: Within normal limits Plan Anesthesia Type: MAC Consent for Procedure(s) Verified and Reviewed: Yes Code Status: Attempt Resuscitation ASA classification: 2-Mild systemic disease Is this case an emergency?: No
[2020-08-27] MEDS ORDERED: MIDAZOLAM 2 MG/2 ML VIAL ONE (08:10)
[2020-08-27] MEDS ORDERED: fentaNYL 100 MCG/2 ML VIAL ONE (08:10)
[2020-08-27] MEDS ORDERED: BRIMONIDINE 0.2% OPHTH DROPS 5 ML OPTH ONE (08:20)
[2020-08-27] MEDS ORDERED: TIMOLOL 0.5% OPHTH DROPS OPTH ONE (08:21)
[2020-08-27] MEDS ORDERED: EPINEPHrine 1 MG/ML AMP IR ONE (08:21)
[2020-08-27] MEDS ORDERED: CHONDR SULF/HYALURONATE SYRINGE IO ONE (08:21)
[2020-08-27] MEDS ORDERED: BSS/LIDOCAINE/EPINEPHRINE 1 ML SYRINGE IO ONE (08:22)
[2020-08-27] MEDS ORDERED: TRIAMCIN/MOXIFLOX OPHTHALMIC 0.6 ML VIAL IO ONE (08:22)
[2020-08-27] MEDS ORDERED: PROPARACAINE 0.5% OPHTH DROPS 15 ML EACHEYE ONE (08:23)
[2020-08-27] MEDS ORDERED: VANCOMYCIN OPHTHALMI 8MG/0.8ML 8 MG/0.8 ML SYRINGE IO ONE (08:23)
[2020-08-27 08:46] VITALS: BP 140/62
--- NOTE | 2020-08-27 08:50 | ANESTHESIA POST OP EVALUATION ---
Anesthesia Post Eval - Post Anesthesia Eval Vitals: Last Vital Signs Temp 36.8 C 08/27/20 08:41 Pulse 59 L 08/27/20 08:45 Resp 23 08/27/20 08:45 BP 140/62 H 08/27/20 08:45 Pulse Ox 97 08/27/20 08:45 CV Function Including HR & BP: positive: Stable Pain Control: positive: Satisfactory Nausea & Vomiting: positive: Negative Mental Status: positive: Baseline Respiratory Status: Airway Patent Hydration Status: Satisfactory Anesthesia Complications: positive: None
--- NOTE | 2020-08-27 11:30 | OPERATIVE REPORT ---
DATE OF SERVICE: 08/27/2020 Physician: Joe Hurley MD PREOPERATIVE DIAGNOSIS: Visually significant cataract, right eye. This was her first cataract surge ry. POSTOPERATIVE DIAGNOSIS: Visually significant cataract, right eye. This was her first cataract surg hanane. PROCEDURE: Phacoemulsification with posterior chamber intraocular lens implant, right eye. SURGEON: Joe Hurley MD. ANESTHESIA: Monitored anesthesia care. COMPLICATIONS: None. OPERATIVE INDICATIONS: This is a 59-year-old woman with progressive vision loss in the right eye due to 2+ to 3+ nuclear sclerotic and 2+ cortical cataract. Best corrected visual acuity was 20/50 with glare to 20/200 in the right eye. Indications for surgery are overall decrease in vision, difficult y seeing words on a computer screen, difficulty reading, difficulty seeing words, closed caption or g ovidio scores on TV, difficulty seeing street signs, and difficulty with glare or bright lights in any s ituation. She was consented at length concerning risks and benefits of cataract surgery, after which she expressed a desire to proceed with surgery. OPERATIVE PROCEDURE: The patient was taken in to OR #3 and placed under monitored anesthesia care. A surgical timeout was conducted, confirming correct patient, correct procedure, and correct surgical site. She was given topical anesthesia and prepped and draped in the usual sterile fashion. The ey e was entered at the 12 and 9 o'clock positions. Intracameral Shugarcaine was injected into the ante rior chamber followed by Viscoat. A continuous-tear curvilinear capsulorrhexis was performed. Nucle us was hydrodissected and phacoemulsified. The cortex was evacuated using automated infusion and asp iration. Provisc was injected in the capsular bag and a 23.5 diopter intraocular lens inserted into the bag. Infusion and aspiration were used to evacuate the viscoelastic materials. The eye was infl ated to physiologic pressure using balanced salt solution and found to be watertight. Approximately 0.25 mL of a mixture of triamcinolone and moxifloxacin was injected transsclerally into the vitreous in the inferotemporal quadrant. An additional 0.55 mL of a mixture of triamcinolone, moxifloxacin, a nd vancomycin was injected subconjunctivally in the superior quadrant for infection and inflammation prophylaxis. Wound integrity was checked with Weck-Kathleen sponges. The patient was taken from the oper ating room in good condition and given postoperative instructions. TD: 08/27/2020 08:51
== END 2020-08-27 07:27 | disposition home or self-care (01) ==
LOC: SDS 07:26
PROVIDERS: ATTEND Ophthalmology
DX: E11.36 Type 2 diabetes mellitus with diabetic cataract (principal); H25.811 Combined forms of age-related cataract, right eye; I10 Essential (primary) hypertension; G89.29 Other chronic pain; M54.9 Dorsalgia, unspecified; E89.0 Postprocedural hypothyroidism; Z79.1 Long term (current) use of non-steroidal anti-inflammatories (NSAID); Z79.84 Long term (current) use of oral hypoglycemic drugs
CPT/HCPCS: 66984; A9270; J3490; J7120; V2632

== ENCOUNTER 2020-09-03 08:00 | Outpatient (CLI) | payer OTHER ==
[2020-09-03 14:25] LABS: BASOPHILS # (AUTO) 0.1 10^3/uL (0.0-0.1); BASOPHILS % (AUTO) 1.1 %; EOSINOPHILS # (AUTO) 0.2 10^3/uL (0.0-0.7); EOSINOPHILS % (AUTO) 2.5 %; HGB - HEMOGLOBIN 14.8 g/dL (12.0-16.0); LYMPHOCYTES # (AUTO) 1.7 10^3/uL (1.5-3.5); LYMPHOCYTES % (AUTO) 25.8 %; MEAN CORPUSCULAR HEMOGLOBIN 30.8 pg (27.0-31.0); MEAN CORPUSCULAR HGB CONC 32.9 g/dL (32.0-36.0); MEAN CORPUSCULAR VOLUME 93.6 fL (81.0-99.0); MEAN PLATELET VOLUME 10.3 fL (7.9-10.8); MONOCYTES # (AUTO) 0.4 10^3/uL (0.0-1.0); MONOCYTES % (AUTO) 6.6 %; NEUTROPHILS # (AUTO) 4.2 10^3/uL (1.5-6.6); NEUTROPHILS % (AUTO) 63.8 %; PLT - PLATELET COUNT 206 10^3/uL (130-450); RED BLOOD COUNT 4.81 10^6/uL (4.20-5.40); RED CELL DISTRIBUTION WIDTH 12.2 % (12.0-15.0); WHITE BLOOD COUNT 6.5 x10^3/uL (4.8-10.8)
[2020-09-03 14:44] LABS: ALBUMIN 4.2 g/dL (3.2-5.5); ALBUMIN/GLOBULIN RATIO 1.1 (1.0-2.2); ALKALINE PHOSPHATASE 42 IU/L (42-121); ALT ALANINE AMINOTRANSFERASE 30 IU/L (10-60); AST ASPARTATE AMINOTRANSFERASE 23 IU/L (10-42); BILIRUBIN,TOTAL 0.7 mg/dL (0.2-1.0); BUN - BLOOD UREA NITROGEN 17 mg/dL (6-20); CALCIUM 9.4 mg/dL (8.5-10.3); CARBON DIOXIDE - CO2 28 mmol/L (21-32); CHLORIDE 104 mmol/L (101-111); CHOL/HDL RATIO 4.3 (<4.4); CHOLESTEROL 190 mg/dL; CREATININE 0.9 mg/dL (0.4-1.0); GLUCOSE 103 mg/dL (70-100); HDL CHOLESTEROL 44 mg/dL; LDL CHOLESTEROL,CALCULATED 127 mg/dL; LDL/HDL RATIO 2.9 (<4.4); SODIUM 138 mmol/L (135-145); TOTAL PROTEIN 8.1 g/dL (6.7-8.2); VLDL CHOLESTEROL 19 mg/dL
[2020-09-03 14:47] LABS: HEMOGLOBIN A1c% 6.3 % (4.27-6.07)
[2020-09-03 14:51] LABS: CREATININE,URINE 132.1 mg/dL; MICROALBUM/CREATININE RATIO,UR 8.3 ug/mg (<30.0); MICROALBUMIN,URINE 1.1 mg/dL (0-300.0)
== END 2020-09-03 23:59 | disposition home or self-care (01) ==
LOC: LAB.WCP 08:00
PROVIDERS: ATTEND Physician Assistant
DX: E11.9 Type 2 diabetes mellitus without complications (principal); I10 Essential (primary) hypertension; E03.9 Hypothyroidism, unspecified
CPT/HCPCS: 36415; 80053; 80061; 82043; 82570; 83036; 83721; 84443; 85025

== ENCOUNTER 2020-09-16 08:00 | Outpatient (CLI) | payer OTHER | END 2020-09-16 08:01 | disposition home or self-care (01) | LOC: DI 08:00 | PROVIDERS: ATTEND Physician Assistant | DX: R00.1 Bradycardia, unspecified (principal); I34.0 Nonrheumatic mitral (valve) insufficiency | CPT/HCPCS: 93306 ==

== ENCOUNTER 2020-11-23 16:37 | Outpatient (CLI) | payer OTHER | END 2020-11-23 16:38 | disposition home or self-care (01) | LOC: COV 16:37 | PROVIDERS: ATTEND Ophthalmology | DX: Z01.812 Encounter for preprocedural laboratory examination (principal); H25.812 Combined forms of age-related cataract, left eye; E11.9 Type 2 diabetes mellitus without complications; Z20.822 Contact with and (suspected) exposure to COVID-19 ==

== ENCOUNTER 2020-11-26 07:39 | Day surgery (SDC) | payer OTHER ==
[2020-11-26] MEDS ORDERED: LACTATED RINGERS 500 ML IV ONE ×2 (08:04→09:25)
[2020-11-26] MEDS ORDERED: CYCLOPENTOLATE 2% OPHTH DROPS 2 ML LEFTEYE ONE (08:07)
--- NOTE | 2020-11-26 08:40 | ANESTHESIA ---
Pre-Anesthesia VS, & Labs - Diagnosis left eye senile combined cataract - Procedure left eye cataract extraction with IOL implant Vital Signs: Temp Pulse Resp BP Pulse Ox 36.2 C L 71 17 163/89 H 99 11/26/20 07:56 11/26/20 07:56 11/26/20 07:56 11/26/20 07:56 11/26/20 07:56 Height: 5 ft Weight (kg): 65.5 kg Body Mass Index: 28.2 BMI Classification: Overweight - NPO >8 hours - Is Patient ?: No - Lab Results Current Lab Results: Laboratory Tests 11/26/20 08:12: POC Whole Bld Glucose 127 H Home Medications and Allergies Cholecalciferol (Vitamin D3) [Vitamin D] 1,000 unit PO DAILY 03/01/13 Ibuprofen 600 mg PO Q8HR PRN 03/01/13 Levothyroxine [Synthroid] 112 mcg PO QDAC 03/01/13 Metoprolol Succinate 12.5 mg PO BID 03/01/13 metFORMIN [Glucophage] 500 mg PO BID 12/05/15 Allergies/Adverse Reactions: Allergies Allergy/AdvReac Type Severity Reaction Status Date / Time No Known Drug Allergies Allergy Verified 11/26/20 08:03 Anes History & Medical History - Anesthetic History Anesthesia Complications: reports: No previous complications - Medical History Cardiovascular: reports: Hypertension, Murmur Pulmonary: reports: None Gastrointestinal: reports: GERD, Chronic diarrhea Urinary: reports: None Neuro: reports: None Musculoskeletal: reports: None Endocrine/Autoimmune: reports: Type 2 diabetes, HyPOthyroidism Blood Disorders: reports: None Skin: reports: None Smoking Status: Never smoker Psychosocial: reports: No issues indicated History of Cancer?: Yes (s/p thyroidectomy) - Surgical History General: reports: Other (thyroidectomy) Eyes Ears Nose Throat (EENT): reports: Cataracts Exam General: Alert, Oriented x3, Cooperative, No acute distress Dental: Poor dentition Mouth Openin Fingerbreadth Neck Mobility: Normal Mallampati classification: II Mental/Cognitive Status: Alert/Oriented X3, Normal for patient Plan Anesthesia Type: MAC Consent for Procedure(s) Verified and Reviewed: Yes Code Status: Attempt Resuscitation ASA classification: 2-Mild systemic disease Is this case an emergency?: No
[2020-11-26] MEDS ORDERED: MIDAZOLAM 2 MG/2 ML VIAL ONE (09:01)
[2020-11-26] MEDS ORDERED: TRIAMCIN/MOXIFLOX OPHTHALMIC 0.6 ML VIAL IO ONE ×2 (09:04→09:16)
[2020-11-26] MEDS ORDERED: BRIMONIDINE 0.2% OPHTH DROPS 5 ML ONE (09:04)
[2020-11-26] MEDS ORDERED: TIMOLOL 0.5% OPHTH DROPS ONE (09:04)
[2020-11-26] MEDS ORDERED: VANCOMYCIN OPHTHALMI 8MG/0.8ML 8 MG/0.8 ML SYRINGE IO ONE ×2 (09:04→09:16)
[2020-11-26] MEDS ORDERED: BRIMONIDINE 0.2% OPHTH DROPS 5 ML OPTH ONE (09:15)
[2020-11-26] MEDS ORDERED: TIMOLOL 0.5% OPHTH DROPS OPTH ONE (09:16)
[2020-11-26] MEDS ORDERED: PROPARACAINE 0.5% OPHTH DROPS 15 ML EACHEYE ONE (09:16)
[2020-11-26] MEDS ORDERED: BSS/LIDOCAINE/EPINEPHRINE 1 ML SYRINGE IO ONE (09:16)
[2020-11-26] MEDS ORDERED: EPINEPHrine 1 MG/ML AMP IR ONE (09:16)
[2020-11-26] MEDS ORDERED: CHONDR SULF/HYALURONATE SYRINGE IO ONE (09:16)
--- NOTE | 2020-11-26 09:36 | ANESTHESIA POST OP EVALUATION ---
Anesthesia Post Eval - Post Anesthesia Eval Vitals: Last Vital Signs Temp 36.9 C 11/26/20 09:24 Pulse 66 11/26/20 09:27 Resp 14 11/26/20 09:27 BP 137/62 H 11/26/20 09:27 Pulse Ox 100 11/26/20 09:27 CV Function Including HR & BP: positive: Stable Pain Control: positive: Satisfactory Nausea & Vomiting: positive: Negative Mental Status: positive: Baseline Respiratory Status: Airway Patent Hydration Status: Satisfactory Anesthesia Complications: positive: None
[2020-11-26 09:41] VITALS: BP 153/60
--- NOTE | 2020-11-26 10:13 | OPERATIVE REPORT ---
DATE OF SERVICE: 11/26/2020 Physician: Joe Hurley MD PREOPERATIVE DIAGNOSIS: Visually significant cataract, left eye. Cataract surgery was performed on the right eye on 08/27/2020. POSTOPERATIVE DIAGNOSIS: Visually significant cataract, left eye. Cataract surgery was performed on the right eye on 08/27/2020. PROCEDURE PERFORMED: Phacoemulsification with posterior chamber intraocular lens implant, left eye. SURGEON: Joe Hurley MD. ANESTHESIA: Monitored anesthesia care. COMPLICATIONS: None. OPERATIVE INDICATIONS: This is a 60-year-old woman with progressive vision loss in the left eye due to 2+ to 3+ nuclear sclerotic cataract. Best corrected visual acuity was 20/40 with glare to 20/70 i n the left eye. Indications for surgery are difficulty reading, difficulty seeing street signs, and difficulty driving at night because of headlights from other vehicles. She was consented at length c oncerning the risks and benefits of cataract surgery, after which she expressed a desire to proceed w ith surgery. OPERATIVE PROCEDURE: The patient was taken into OR #3 and placed under monitored anesthesia care. A surgical timeout was conducted, confirming correct patient, correct procedure, and correct surgical site. She was given topical anesthesia and prepped and draped in usual sterile fashion. The eye was entered at the 6 and 3 o'clock positions. Intracameral Shugarcaine was injected into the anterior c hamber followed by Viscoat. A continuous-tear curvilinear capsulorrhexis was performed. The nucleus was hydrodissected and phacoemulsified. The cortex was evacuated using automated infusion and aspir ation. Provisc was injected in the capsular bag and a 23.0 diopter intraocular lens inserted into th e bag. Infusion and aspiration were used to evacuate the viscoelastic materials. The eye was inflat ed to physiologic pressure using balanced salt solution and found to be watertight. Approximately 0. 25 mL of a mixture of triamcinolone and moxifloxacin was injected transsclerally into the vitreous in the inferotemporal quadrant. An additional 0.55 mL of a mixture of triamcinolone, moxifloxacin, and vancomycin was injected subconjunctivally in the superior quadrant for infection and inflammation pr ophylaxis. Wound integrity was checked with Weck-Kathleen sponges. The patient was taken from the operat ing room in good condition and given postoperative instructions. TD: 11/26/2020 10:01
== END 2020-11-26 07:40 | disposition home or self-care (01) ==
LOC: SDS 07:39
PROVIDERS: ATTEND Ophthalmology
DX: E11.36 Type 2 diabetes mellitus with diabetic cataract (principal); H25.812 Combined forms of age-related cataract, left eye; Z79.84 Long term (current) use of oral hypoglycemic drugs; E03.9 Hypothyroidism, unspecified; I10 Essential (primary) hypertension; E66.3 Overweight; Z68.28 Body mass index [BMI] 28.0-28.9, adult; Z98.41 Cataract extraction status, right eye
CPT/HCPCS: 66984; A9270; J3490; J7120; V2632

== ENCOUNTER 2021-01-31 19:52 | Emergency (ER) | payer OTHER ==
--- OUTSIDE RECORDS SUMMARY | 2021-01-31 19:56 | EXTERNAL MEDICAL SUMMARY RPT | Continuity of Care Document ---
:1960 Demographics Phone Unavailable Preferred Language Haitian Marital Status Unknown Mormon Affiliation Unknown Race Unknown Ethnic Group Unknown Author Organization [facility] Address [address] [phone] Phone Care Team Providers Name Role Phone Diogo Unavailable Unavailable Problems date description facility 20210101 Left upper [facility] 20210101 Left lower quadrant pain [facility] 20210101 Epigastric pain [facility] Procedures date description facility 20210125 [facility] 20210106 [facility] 20210101 [facility] Vital Signs date measurement value source 20210106 weight_standard 66.22 lb 20210106 weight_metric 30.04 kg 20210106 height_standard 60 in 20210106 height_metric 152.4 cm 20210106 heart_rate 71 /min 20210106 BP_systolic 122 mm[Hg] 20210106 BP_diastolic 70 mm[Hg] 20210106 BMI 28.5 kg/m2 20210125 weight_standard 66.68 lb 20210125 weight_metric 30.24 kg 20210125 temperature_standard 97.6 F 20210125 temperature_metric 36.44 C 20210125 height_standard 60 in 20210125 height_metric 152.4 cm 20210125 heart_rate 74 /min 20210125 BP_systolic 132 mm[Hg] 20210125 BP_diastolic 76 mm[Hg] 20210125 BMI 28.7 kg/m2
[2021-01-31] MEDS ORDERED: ONDANSETRON 4 MG/2 ML VIAL IVP STA (20:00)
[2021-01-31] MEDS ORDERED: HYDROmorphone 1 MG/ML CARPUJECT IVP STA (20:00)
--- NOTE | 2021-01-31 20:01 | ED Physician Documentation ---
PD HPI ABD PAIN - Stated complaint Stated Complaint: N/V/D/HEADACHE - History obtained from History obtained from: Patient, Family - Additional information Additional information: 60-year-old woman with history of cardiac murmur, type 2 diabetes presents with acute onset epigastric and right upper quadrant pain after eating pork adobo at home just prior to arrival. No history of abdominal surgeries. She is vomited several times. Both pain and nausea are severe. Review of Systems Ten Systems: 10 systems reviewed and negative Constitutional: denies: Fever, Chills Nose: reports: Reviewed and negative Throat: reports: Reviewed and negative Cardiac: reports: Reviewed and negative PD PAST MEDICAL HISTORY - Past Medical History Cardiovascular: Hypertension Neuro: None Endocrine/Autoimmune: Type 2 diabetes, HyPOthyroidism Psych: Eating disorder Musculoskeletal: Chronic back pain - Past Surgical History Past Surgical History: Yes - Present Medications Home Medications: Ambulatory Orders Medication Instructions Recorded Confirmed Cholecalciferol (Vitamin D3) 1,000 unit PO DAILY 03/01/13 01/31/21 [Vitamin D] Levothyroxine [Synthroid] 112 mcg PO QDAC 03/01/13 01/31/21 Metoprolol Succinate 12.5 mg PO BID 03/01/13 01/31/21 metFORMIN [Glucophage] 500 mg PO BID 12/05/15 01/31/21 Meclizine [Antivert] 25 mg PO Q6H PRN 10 Days #40 tablet 12/16/19 01/31/21 Famotidine [Pepcid] 20 mg PO BID 01/31/21 01/31/21 Ibuprofen [Motrin] 600 mg PO Q6HR PRN 01/31/21 01/31/21 methocarbamoL [Methocarbamol] 500 mg PO TID PRN 01/31/21 01/31/21 Ondansetron Odt [Zofran] 4 mg TL Q6H PRN #10 tablet 02/01/21 - Allergies Allergies/Adverse Reactions: Allergies Allergy/AdvReac Type Severity Reaction Status Date / Time No Known Drug Allergies Allergy Verified 01/31/21 20:25 - Social History Does the pt smoke?: No Smoking Status: Never smoker Does the pt drink ETOH?: No Does the pt have substance abuse?: No - Immunizations Immunizations are current?: Yes - POLST Patient has POLST: No PD ED PE NORMAL - Vitals Vital signs reviewed: Yes - General General: Alert and oriented X 3, Other (Appears uncomfortable and nauseous) - HEENT HEENT: PERRL, EOMI - Neck Neck: Supple, no meningeal sign, No bony TTP - Cardiac Cardiac: RRR, Other (2 out of 6 decrescendo systolic murmur heard best at the right upper sternal border) - Abdomen Abdomen: Soft (Exquisitely tender in the right upper quadrant with positive Sanabria sign) - Back Back: No CVA TTP, No spinal TTP - Derm Derm: Normal color, Warm and dry - Extremities Extremities: No edema, No calf tenderness / cord - Neuro Neuro: Alert and oriented X 3, Normal speech Results - Vitals Vitals: Vital Signs - 24 hr 01/31/21 01/31/21 01/31/21 20:00 20:48 23:36 Temperature 35.8 C L 36.5 C Heart Rate 83 73 61 Respiratory 20 16 Rate Blood Pressure 173/87 H 132/70 H 138/73 H O2 Saturation 97 99 99 02/01/21 00:40 Temperature 36.2 C L Heart Rate 68 Respiratory 14 Rate Blood Pressure 136/72 H O2 Saturation 100 Oxygen O2 Source Room air - Labs Labs: Laboratory Tests 01/31/21 01/31/21 01/31/21 20:15 20:15 22:12 WBC 22.8 H RBC 5.13 Hgb 15.5 Hct 46.2 MCV 90.1 MCH 30.2 MCHC 33.5 RDW 12.3 Plt Count 217 MPV 9.6 Neut # (Auto) Not Reportable Lymph # (Auto) Not Reportable [place] # (Auto) Not Reportable Eos # (Auto) Not Reportable Baso # (Auto) Not Reportable Absolute Nucleated RBC Not Reportable Total Counted 100 Band Neuts % (Manual) 12 H Abnorm Lymph % (Manual) 0 Nucleated RBC % Not Reportable Neutrophils # (Manual) 19.8 H Lymphocytes # (Manual) 2.7 Monocytes # (Manual) 0.0 Eosinophils # (Manual) 0.2 Basophils # (Manual) 0.0 Differential Comment MANUAL DIFFERENTIAL Platelet Estimate NORMAL (130-450,000) Platelet Morphology NORMAL APPEARANCE RBC Morph Micro Appear NORMAL APPEARANCE Sodium 136 Potassium 3.4 L Chloride 103 Carbon Dioxide 22 Anion Gap 11.0 BUN 29 H Creatinine 1.2 H Estimated GFR (MDRD) 46 L Glucose 196 H Calcium 9.3 Total Bilirubin 0.6 AST 43 H ALT 35 Alkaline Phosphatase 55 Total Protein 8.7 H Albumin 4.7 Globulin 4.0 Albumin/Globulin Ratio 1.2 Lipase 63 H Urine Color YELLOW Urine Clarity CLEAR Urine pH 5.5 Ur Specific [place] >=1.030 H Urine Protein TRACE Urine Glucose (UA) NEGATIVE Urine Ketones NEGATIVE Urine Occult Blood TRACE-INTA Urine Nitrite NEGATIVE Urine Bilirubin NEGATIVE Urine Urobilinogen 0.2 (NORMAL) Ur Leukocyte Esterase NEGATIVE Ur Microscopic Review NOT INDICATED Urine Culture Comments NOT INDICATED PD MEDICAL DECISION MAKING - ED course ED course: 60yo woman with DMII presents with epigastric pain/vomiting p eating. TTP RUQ. I don't see abnormalities on RUQ Sono So CT also ordered given leukocytosis. On reeval pt was pain/nausea free. S/O to Dr Stanley at shift change pending formal reads of radiology studies. Departure - Departure Disposition: 01 Home, Self Care Clinical Impression: Vomiting Condition: Stable Instructions: ED Gastroenteritis Vs Food Poison Follow-Up: Ronda Lind PA [Primary Care Provider] - Prescriptions: Ondansetron Odt [Zofran] 4 mg TL Q6H PRN #10 tablet PRN Reason: Nausea / Vomiting Forms: Activity restrictions Discharge Date/Time: 02/01/21 00:45
--- OUTSIDE RECORDS SUMMARY | 2021-01-31 20:06 | EXTERNAL MEDICAL SUMMARY RPT | Continuity of Care Document ---
:1960 Demographics Phone Unavailable Preferred Language Ukrainian Marital Status Unknown Yazidi Affiliation Unknown Race Unknown Ethnic Group Unknown Author Organization [facility] Address [address] [phone] Phone Care Team Providers Name Role Phone Ronda Lind Unavailable Unavailable Problems date description facility 20210101 Left upper quadrant pain [facility] 20210101 Left lower quadrant pain [facility] al 20210101 Epigastric pain [facility] Procedures date description facility 20210125 [facility] 20210106 [facility] 20210101 [facility] Vital Signs date measurement value source 20210106 [...]
[2021-01-31 20:24] LABS: BASOPHILS % (AUTO) 0.5 %; EOSINOPHILS % (AUTO) 0.9 %; HCT - HEMATOCRIT 46.2 % (37.0-47.0); HGB - HEMOGLOBIN 15.5 g/dL (12.0-16.0); MEAN CORPUSCULAR HEMOGLOBIN 30.2 pg (27.0-31.0); MEAN CORPUSCULAR HGB CONC 33.5 g/dL (32.0-36.0); MEAN CORPUSCULAR VOLUME 90.1 fL (81.0-99.0); MEAN PLATELET VOLUME 9.6 fL (7.9-10.8); MONOCYTES % (AUTO) 3.8 %; NEUTROPHILS % (AUTO) 86.3 %; PLT - PLATELET COUNT 217 10^3/uL (130-450); RED BLOOD COUNT 5.13 10^6/uL (4.20-5.40); RED CELL DISTRIBUTION WIDTH 12.3 % (12.0-15.0); WHITE BLOOD COUNT 22.8 x10^3/uL (4.8-10.8)
[2021-01-31 20:34] LABS: ALBUMIN 4.7 g/dL (3.2-5.5); ALBUMIN/GLOBULIN RATIO 1.2 (1.0-2.2); BILIRUBIN,TOTAL 0.6 mg/dL (0.2-1.0); CALCIUM 9.3 mg/dL (8.5-10.3); CREATININE 1.2 mg/dL (0.4-1.0); POTASSIUM 3.4 mmol/L (3.5-5.0); TOTAL PROTEIN 8.7 g/dL (6.7-8.2)
[2021-01-31 20:48] LABS: ABNORMAL LYMPHS % (MANUAL) 0 %
[2021-01-31 21:21] LABS: BAND NEUTROPHILS % (MANUAL) 12 %; DIFFERENTIAL COMMENT MANUAL DIFFERENTIAL; EOSINOPHILS # (MANUAL) 0.2 10^3/uL (0-0.7); LYMPHOCYTES # (MANUAL) 2.7 10^3/uL (1.5-3.5); LYMPHOCYTES % (MANUAL) 12 %; NEUTROPHILS # (MANUAL) 19.8 10^3/uL (1.5-6.6); PLATELET ESTIMATE, MANUAL NORMAL (130-450,000) (NORMAL); PLATELET MORPHOLOGY NORMAL APPEARANCE (NORMAL); RBC MORPHOLOGY (MULTIPLE) NORMAL APPEARANCE (NORMAL)
[2021-01-31] MEDS ORDERED: SODIUM CHLORIDE 0.9% 1,000 ML IV STA (22:18)
[2021-01-31 22:19] LABS: BILIRUBIN,URINE NEGATIVE (NEGATIVE); GLUCOSE, URINE (UA) NEGATIVE (NEGATIVE); KETONES,URINE (UA) NEGATIVE (NEGATIVE); LEUKOCYTE ESTERASE, URINE NEGATIVE (NEGATIVE); NITRITE,URINE NEGATIVE (NEGATIVE); OCCULT BLOOD,URINE TRACE-INTA (NEGATIVE); PH,URINE 5.5 PH (5.0-7.5); PROTEIN,URINE TRACE mg/dL (NEGATIVE); UROBILINOGEN,URINE 0.2 (NORMAL) E.U./dL (NORMAL)
[2021-01-31 22:22] LABS: CLARITY,URINE CLEAR (CLEAR)
[2021-01-31] MEDS ORDERED: IOVERSOL 320 100 ML VIAL IVP ONE ×2 (22:24→23:07)
--- NOTE | 2021-02-01 00:39 | ED Physician Documentation ---
PD HPI ABD PAIN - Stated complaint Stated Complaint: N/V/D/HEADACHE - Chief complaint Chief Complaint: Abd Pain - History obtained from History obtained from: Patient, Family - Additional information Additional information: 60-year-old female with acute nausea and vomiting after eating is initially evaluated in the emerge department by Dr. Knowles and at shift change images both CT and ultrasound are pending interpretations. The patient feels well after treatment and wants to go home. See Dr. Knowles's note for details on presentation. PD PAST MEDICAL HISTORY - Past Medical History Past Medical History: Yes Cardiovascular: Hypertension Neuro: None Endocrine/Autoimmune: Type 2 diabetes, HyPOthyroidism Psych: Eating disorder Musculoskeletal: Chronic back pain - Past Surgical History Past Surgical History: Yes - Present Medications Home Medications: Ambulatory Orders Medication Instructions Recorded Confirmed Cholecalciferol (Vitamin D3) 1,000 unit PO DAILY 03/01/13 01/31/21 [Vitamin D] Levothyroxine [Synthroid] 112 mcg PO QDAC 03/01/13 01/31/21 Metoprolol Succinate 12.5 mg PO BID 03/01/13 01/31/21 metFORMIN [Glucophage] 500 mg PO BID 12/05/15 01/31/21 Meclizine [Antivert] 25 mg PO Q6H PRN 10 Days #40 tablet 12/16/19 01/31/21 Famotidine [Pepcid] 20 mg PO BID 01/31/21 01/31/21 Ibuprofen [Motrin] 600 mg PO Q6HR PRN 01/31/21 01/31/21 methocarbamoL [Methocarbamol] 500 mg PO TID PRN 01/31/21 01/31/21 Ondansetron Odt [Zofran] 4 mg TL Q6H PRN #10 tablet 02/01/21 - Allergies Allergies/Adverse Reactions: Allergies Allergy/AdvReac Type Severity Reaction Status Date / Time No Known Drug Allergies Allergy Verified 01/31/21 20:25 - Social History Does the pt smoke?: No Smoking Status: Never smoker Does the pt drink ETOH?: No Does the pt have substance abuse?: No - Immunizations Immunizations are current?: Yes - POLST Patient has POLST: No Results - Vitals Vitals: Vital Signs - 24 hr 01/31/21 01/31/21 01/31/21 20:00 20:48 23:36 Temperature 35.8 C L 36.5 C Heart Rate 83 73 61 Respiratory 20 16 Rate Blood Pressure 173/87 H 132/70 H 138/73 H O2 Saturation 97 99 99 02/01/21 00:40 Temperature 36.2 C L Heart Rate 68 Respiratory 14 Rate Blood Pressure 136/72 H O2 Saturation 100 Oxygen O2 Source Room air - Labs Labs: Laboratory Tests 01/31/21 01/31/21 01/31/21 20:15 20:15 22:12 WBC 22.8 H RBC 5.13 Hgb 15.5 Hct 46.2 MCV 90.1 MCH 30.2 MCHC 33.5 RDW 12.3 Plt Count 217 MPV 9.6 Neut # (Auto) Not Reportable Lymph # (Auto) Not Reportable [place] # (Auto) Not Reportable Eos # (Auto) Not Reportable Baso # (Auto) Not Reportable Absolute Nucleated RBC Not Reportable Total Counted 100 Band Neuts % (Manual) 12 H Abnorm Lymph % (Manual) 0 Nucleated RBC % Not Reportable Neutrophils # (Manual) 19.8 H Lymphocytes # (Manual) 2.7 Monocytes # (Manual) 0.0 Eosinophils # (Manual) 0.2 Basophils # (Manual) 0.0 Differential Comment MANUAL DIFFERENTIAL Platelet Estimate NORMAL (130-450,000) Platelet Morphology NORMAL APPEARANCE RBC Morph Micro Appear NORMAL APPEARANCE Sodium 136 Potassium 3.4 L Chloride 103 Carbon Dioxide 22 Anion Gap 11.0 BUN 29 H Creatinine 1.2 H Estimated GFR (MDRD) 46 L Glucose 196 H Calcium 9.3 Total Bilirubin 0.6 AST 43 H ALT 35 Alkaline Phosphatase 55 Total Protein 8.7 H Albumin 4.7 Globulin 4.0 Albumin/Globulin Ratio 1.2 Lipase 63 H Urine Color YELLOW Urine Clarity CLEAR Urine pH 5.5 Ur Specific [place] >=1.030 H Urine Protein TRACE Urine Glucose (UA) NEGATIVE Urine Ketones NEGATIVE Urine Occult Blood TRACE-INTA Urine Nitrite NEGATIVE Urine Bilirubin NEGATIVE Urine Urobilinogen 0.2 (NORMAL) Ur Leukocyte Esterase NEGATIVE Ur Microscopic Review NOT INDICATED Urine Culture Comments NOT INDICATED - Rads (name of study) CT abdomen pelvis with Radiology: Prelim report reviewed (Impression: Mild small bowel distention noted in the left abdomen. Question of ileus versus mild partial small bowel obstruction.), EMP read indepedently, See rad report Ultrasound right upper quadrant Radiology: Prelim report reviewed, EMP read indepedently, See rad report Procedures - Bedside sono Bedside sono by EMP: With use bedside ultrasound the gallbladder is imaged it is small with a thickened wall no stones are obvious. The gallbladder is sonographically nontender to deep palpation. PD MEDICAL DECISION MAKING - ED course Complexity details: reviewed old records, reviewed results, re-evaluated patient, considered differential, d/w patient, d/w family, d/w toy consultant (Dorie) ED course: 60-year-old female who has had recurrent episodes of vomiting and abdominal pain following eating. She has had another episode today after treatment here in the emergency department she feels well and wants to go home. At shift change her care is left me with a pending CT scan of the abdomen pelvis. The ultrasound is concerning for possible acalculus cholecystitis and the CT scan is concerning for a partial small bowel obstruction on the left side. Neither of these findings are overwhelming. The patient has a white blood cell count of 22,000 with a left shift and she has had episodes similar to this previously after eating and she recovers from them. She has a work-up in process she has plans to have colonoscopy done on the third. I reviewed her films with the radiologist and I reviewed the case with the surgeon and she recommended conservative treatment as this is likely a gastroenteritis or food poisoning. Departure - Departure Disposition: 01 Home, Self Care Clinical Impression: Vomiting Qualifiers: Vomiting type: unspecified Vomiting Intractability: non-intractable Nausea presence: with nausea Qualified Code(s): R11.2 - Nausea with vomiting, unspecified Condition: Stable Instructions: ED Gastroenteritis Vs Food Poison Follow-Up: Ronda Lind PA [Primary Care Provider] - Prescriptions: Ondansetron Odt [Zofran] 4 mg TL Q6H PRN #10 tablet PRN Reason: Nausea / Vomiting Forms: Activity restrictions Discharge Date/Time: 02/01/21 00:45
[2021-02-01 00:45] VITALS: BP 136/72
--- NOTE | 2021-02-01 08:50 | CT Report ---
PROCEDURE: Abdomen/Pelvis W INDICATIONS: Abdominal pain, nausea, and vomiting. CONTRAST: IV CONTRAST: Optiray 320 ml: 100 PO CONTRAST: *NO PO CONTRAST TECHNIQUE: After the administration of intravenous contrast, 5 mm thick sections acquired from the diaphragms to the symphysis. 5 mm thick coronal and sagittal reformats were acquired. For radiation dose reducti on, the following was used: automated exposure control, adjustment of mA and/or kV according to romelia ent size. COMPARISON: CT abdomen pelvis 03/09/2020, Limited abdominal ultrasound 01/28/2021. FINDINGS: Image quality: Diagnostic orbits. ABDOMEN: Lung bases: There is dependent atelectasis and scarring in the lung bases. There are small clustered nodules within the visualized right lung base measuring approximately 2 to 3 mm. Heart size is at the upper limits of normal. There is a small hiatal hernia. Solid organs: Evaluation of the liver demonstrates no focal hepatic lesions. Gallbladder appears wit hin normal limits without calcified gallstones. Biliary system is non dilated. The spleen is normal in size. Pancreas enhances normally without peripancreatic fat stranding or fluid collections. No ad renal nodules. Kidneys demonstrate no hydronephrosis. There is an exophytic right renal cyst as well as additional small low-density foci in the kidneys which are too small to characterize but likely r epresent cysts. Peritoneum and bowel: Stomach demonstrates normal wall thickness. There are scattered air-fluid leve ls within a mildly dilated segment of small bowel in the left abdomen measuring up to approximately 2 .9 cm. No definite focal transition point to suggest obstruction. The remainder of the small and larg e bowel demonstrates normal caliber and wall thickness. The appendix is normal in appearance. There i s colonic diverticulosis without acute diverticulitis. No free fluid or air. Nodes and vessels: No retroperitoneal or mesenteric adenopathy by size criteria. There is mild hazy fat stranding of the mesentery. Aorta and inferior vena cava are normal in size. Miscellaneous: No ventral hernias. PELVIS: Genitourinary: Bladder wall thickness is normal. Miscellaneous: No inguinal hernias or adenopathy. Bones: There is deformity of the left superior and inferior pubic rami consistent with old healed fr actures. No suspicious bony lesions. No vertebral body compression fractures. IMPRESSION: 1. Mildly dilated segment of small bowel in the left abdomen with air-fluid levels but without a foca l transition point to suggest an obstruction. Findings likely represent a gastroenteritis or ileus. 2. Mild hazy fat stranding of the mesentery without lymphadenopathy. The findings are suggestive of a nonspecific inflammatory process such as sclerosing mesenteritis. 3. No evidence of appendicitis. 4. Colonic diverticulosis without acute diverticulitis. Concordant with preliminary report. Findings were reported to Dr. Stanley on 02/01/2021 at 12:14 AM [facility] radiology services. Reviewed by: Jose Garza MD on 02/01/2021 8:49 AM PDT Approved by: Jose Garza MD on 02/01/2021 8:49 AM PDT Station ID: [id number]
--- NOTE | 2021-02-01 09:20 | Ultrasound Report ---
PROCEDURE: Abdomen Limited INDICATIONS: RUQ psain TECHNIQUE: Real-time focused scanning was performed of the abdomen, with image documentation. COMPARISON: CT abdomen/pelvis 03/09/2020 reviewed. FINDINGS: The liver is normal in size but coarse in echo texture likely reflecting fatty infiltratio n. There are no masses or evidence of intrahepatic biliary distention. The gallbladder wall thickness is 7.4 mm, diffusely. No gallstones or sludge within the gallbladder lumen is seen. The common bile duct is normal in caliber at 3.6 mm. No adjacent free fluid. The pancreas visualized is normal as is the right kidney. IMPRESSION: Somewhat limited evaluation due to inability of the patient to suspend respiration. The liver appears fatty infiltrated. Gallbladder wall is abnormally thickened at 7.4 mm within the upper limits of nor mal being 3.0 mm. Cholecystitis, chronic versus acute, appears present. However, no gallstones are se en. MR cholangiogram may be warranted. Nuclear medicine hepatobiliary scan with gallbladder ejection fraction also may be warranted. Reviewed by: Donald Denise MD on 02/01/2021 9:18 AM PDT Approved by: Donald Denise MD on 02/01/2021 9:18 AM PDT Station ID: [id number]
== END 2021-02-01 00:45 | disposition home or self-care (01) ==
LOC: ED 19:52
DX: R10.11 Right upper quadrant pain (principal); R11.2 Nausea with vomiting, unspecified; E11.9 Type 2 diabetes mellitus without complications; Z79.84 Long term (current) use of oral hypoglycemic drugs
CPT/HCPCS: 36415; 74177; 76705; 80053; 81003; 83690; 85025; 96374; 96375; 99284; J1170; Q9967; 0202U; 81001; 87086

== ENCOUNTER 2021-09-05 12:30 | Outpatient (CLI) | payer OTHER ==
--- NOTE | 2021-09-05 14:02 | Ultrasound Report ---
PROCEDURE: Head or Neck Soft Tissue INDICATIONS: HX OF THYROID CA, CERVICALGIA TECHNIQUE: Real time scanning was performed of the neck region of interest, with image documentation . COMPARISON: None. FINDINGS: The right thyroid lobe is status post thyroidectomy. No residual right thyroid tissue is seen. The le ft thyroid lobe is also status post thyroidectomy. There is a hyperdense nodule in the inferior left thyroid bed measuring 10.6 x 4.6 x 4.9 mm On previous ultrasound in 09/30/2011 it measured 8.4 x 5.8 x 5.4 mm. IMPRESSION: 1. A hyperdense oval nodule in the left inferior thyroid bed measures 10.6 x 4.6 x 4.9 mm relatively unchanged compared to 8.4 x 5.8 x 5.4 mm on 09/30/2011. This is relatively stable and could be a parat hyroid gland. 2. No evidence of recurrent neoplasm. Reviewed by: Tom Key on 09/05/2021 1:01 PM [facility] Approved by: Tom Key on 09/05/2021 1:01 PM [facility] Station ID: [id number]
== END 2021-09-05 12:31 | disposition home or self-care (01) ==
LOC: DI 12:30
PROVIDERS: ATTEND Internal Medicine
DX: E04.1 Nontoxic single thyroid nodule (principal); M54.2 Cervicalgia; Z85.850 Personal history of malignant neoplasm of thyroid; Z90.09 Acquired absence of other part of head and neck

== ENCOUNTER 2022-04-09 13:01 | Outpatient (CLI) | payer OTHER ==
--- NOTE | 2022-04-09 14:07 | XRAY Report ---
PROCEDURE: Lumbar Spine 2 View INDICATIONS: LOW BACK PAIN TECHNIQUE: 2 views of the lumbar spine were acquired. COMPARISON: Correlation is made with the prior abdomen and pelvis CT, 01/31/2021. FINDINGS: Bones: 5 [id number] vertebrae are present. No suspicious bony lesions. Mild levoconvex scoliotic curvature is seen. No significant AP alignment abnormality can be seen. The L1 level demonstrates a mild degree of compression deformity anteriorly, with 10% loss of height. No acute features are seen. The disc heights are relatively well-preserved. Facet arthropathy is seen, which is worst inferiorly. Soft tissues: Overlying bowel gas pattern is normal. No suspicious soft tissue calcifications. IMPRESSION: Generalized degenerative changes are seen, which are worst inferiorly. There is a mild L1 compression 40 seen, which is stable compared to the prior CT. If it would be helpful for clinical management decision making, please consider a dedicated, schedule d lumbar MRI for further evaluation (assuming that there is no contraindication). Reviewed by: Daniel Albert MD on 04/09/2022 1:05 PM [facility] Approved by: Daniel Albert MD on 04/09/2022 1:05 PM [facility] Station ID: [id number]
== END 2022-04-09 13:02 | disposition home or self-care (01) ==
LOC: DI 13:01
PROVIDERS: ATTEND Internal Medicine
DX: M47.816 Spondylosis without myelopathy or radiculopathy, lumbar region (principal)

== ENCOUNTER 2022-09-22 14:03 | Outpatient (CLI) | payer OTHER ==
--- NOTE | 2022-09-22 20:06 | Ultrasound Report ---
PROCEDURE: Bladder, ultrasound INDICATIONS: OTHER DIFFICULTIES WITH MICTURITION TECHNIQUE: Real-time scanning was performed of the kidneys and bladder, with image documentation. COMPARISON: None FINDINGS: Bladder: Normal appearing bladder is identified. Prevoid 336.7 cc. Postvoid no cc bilateral ureteral jets are noted Miscellaneous: No free pelvic fluid. IMPRESSION: Normal ultrasound and bladder Reviewed by: Abdirahman Oropeza MD on 09/22/2022 7:05 PM [facility] Approved by: Abdirahman Oropeza MD on 09/22/2022 7:05 PM [facility] Station ID: [id number]
== END 2022-09-22 14:04 | disposition home or self-care (01) ==
LOC: DI 14:03
PROVIDERS: ATTEND Physician Assistant
DX: R39.198 Other difficulties with micturition (principal)

== ENCOUNTER 2022-11-25 12:36 | Outpatient (CLI) | payer OTHER ==
--- NOTE | 2022-11-25 13:58 | XRAY Report ---
PROCEDURE: Chest 2 View X-Ray INDICATIONS: LEFT CHEST PAIN TECHNIQUE: 2 views of the chest were acquired. COMPARISON: None. FINDINGS: Surgical changes and devices: None. Lungs and pleura: No pleural effusions or pneumothorax. Lungs are clear. Mediastinum: Mediastinal contours are normal. Heart size is normal. Bones and chest wall: No suspicious bony abnormalities. Soft tissues appear unremarkable. IMPRESSION: No acute cardiopulmonary process. Reviewed by: Fredrick Barajas on 11/25/2022 1:57 PM PDT Approved by: Fredrick Barajas on 11/25/2022 1:57 PM PDT Station ID: [id number]
== END 2022-11-25 12:37 | disposition home or self-care (01) ==
LOC: DI 12:36
PROVIDERS: ATTEND Physician Assistant
DX: R07.9 Chest pain, unspecified (principal)

== ENCOUNTER 2022-11-25 12:37 | Outpatient (CLI) | payer OTHER ==
--- NOTE | 2022-11-25 13:52 | XRAY Report ---
PROCEDURE: Lumbar Spine 2 View INDICATIONS: LOW BACK PAIN TECHNIQUE: 2 views of the lumbar spine were acquired. COMPARISON: None. FINDINGS: Bones: 5 [id number] vertebrae are present. Grade 1 anterolisthesis of L4 on L5. Facet arthrosis L4-S1. Mild disc height loss at all levels. Soft tissues: Overlying bowel gas pattern is normal. No suspicious soft tissue calcifications. IMPRESSION: 1.Mild disc loss at all levels. 2.Lower lumbar facet arthrosis. 3.Grade 1 anterolisthesis of L4 on L5. Reviewed by: Fredrick Barajas on 11/25/2022 1:51 PM PDT Approved by: Fredrick Barajas on 11/25/2022 1:51 PM PDT Station ID: [id number]
== END 2022-11-25 12:38 | disposition home or self-care (01) ==
LOC: DI 12:37
PROVIDERS: ATTEND Physician Assistant
DX: M47.816 Spondylosis without myelopathy or radiculopathy, lumbar region (principal); M43.16 Spondylolisthesis, lumbar region; M51.36 Other intervertebral disc degeneration, lumbar region; R07.9 Chest pain, unspecified

== ENCOUNTER 2022-12-22 08:58 | Outpatient (CLI) | payer OTHER | END 2022-12-22 08:59 | disposition home or self-care (01) | LOC: DI 08:58 | PROVIDERS: ATTEND Physician Assistant | DX: I35.1 Nonrheumatic aortic (valve) insufficiency (principal) | CPT/HCPCS: 93306 ==

== ENCOUNTER 2023-01-24 19:12 | Outpatient (CLI) | payer OTHER ==
--- NOTE | 2023-01-25 10:59 | Ultrasound Report ---
PROCEDURE: Duplex Ext Veins Left INDICATIONS: PAIN AND SWELLING IN LEFT LEG TECHNIQUE: Real-time imaging, as well as color and pulse Doppler interrogation, were performed of the lower extr emity deep veins from the inguinal ligament to the popliteal fossa. COMPARISON: None. FINDINGS: The deep veins are normally compressible, and free of intraluminal thrombus. Color and pu lse Doppler demonstrate normal phasic intraluminal flow. There is normal augmentation response to di stal compression maneuver. IMPRESSION: No deep vein thrombosis of the left lower extremity. Reviewed by: Geraldine Lopez MD on 01/25/2023 10:58 AM PDT Approved by: Geraldine Lopez MD on 01/25/2023 10:58 AM PDT Station ID: [id number]
== END 2023-01-24 19:13 | disposition home or self-care (01) ==
LOC: DI 19:12
PROVIDERS: ATTEND Podiatrist
DX: M79.662 Pain in left lower leg (principal); R22.42 Localized swelling, mass and lump, left lower limb

== ENCOUNTER 2023-02-02 21:04 | Outpatient (CLI) | payer OTHER | END 2023-02-02 21:05 | disposition home or self-care (01) | LOC: SC 21:04 | PROVIDERS: ATTEND Nurse Practitioner Family | DX: R06.83 Snoring (principal); G47.10 Hypersomnia, unspecified; G47.8 Other sleep disorders; R51.9 Headache, unspecified; R06.81 Apnea, not elsewhere classified; E11.9 Type 2 diabetes mellitus without complications | CPT/HCPCS: 95810 ==

== ENCOUNTER 2023-03-01 08:27 | Outpatient (CLI) | payer OTHER ==
--- NOTE | 2023-03-01 08:50 | SLEEP CARE CONSULTATION ---
Information from patient questionnaire entered by Adali Kearns. I have reviewed and concur with the information entered by Adali Kearns. This document represents the service I personally performed and the decisions made by , Rossy Montelongo ARNP. History of Present Illness Service Date and Time: 03/01/2023826 Accompanied by: Spouse Initial Drake Sleepiness Scale score: 14 (12/29/22) Current Drake Sleepiness Scale score: 13 (03/01/23) Additional HPI information: AISHWARYA OSPINA returns for follow up and results of the recently performed polysomnography. The patient was informed of the following findings: No significant sleep disordered breathing with an average AHI of 0 and sahra oxygen saturation of 93%. I explained the pathophysiology behind obstructive sleep apnea. Patient's sleep study non-diagnostic due to limited sleep. Patient had severe insomnia the night of the study. Patient does not drink alcohol. Patient does not drive. Patient denies drowsy driving. Sleep Study - Results Type of Sleep Study: Polysomnography (COMPLETED 02/02/23) Prior sleep studies: Yes Year and Where: [facility] 2011 Polysomnography/Home Sleep Study results: IMPRESSION: The quality of the study is very good. The patient had poor sleep efficiency. The sleep architecture was abnormal for lack of REM and slow wave sleep (N3). Respiratory monitoring showed no significant sleep disordered breathing (AHI = 0.0) or hypoxia (sahra oxygen saturation of 93%). The patient did not sleep supine (supine AHI = 0.0; non-supine = 0.00). No audible snore. There was no significant periodic leg movement of sleep. Cardiac rhythm was normal sinus rhythm without significant arrhythmia. No abnormal behavior (parasomnia) observed during the night. CONCLUSIONS and RECOMMENDATIONS: 1. Due to the very limited sleep, this in-laboratory polysomnography is non- diagnostic for sleep disrupting conditions. The study should be repeated with sleep aid. Allergies and Home Medications Known drug allergies: No Drug allergies reviewed: Yes Home medication list reviewed: Yes (no changes) Allergy and home medication list: Allergies No Known Drug Allergies Allergy (Verified 02/28/23 13:06) Review of Systems Review of systems same as previous: Yes (no changes) Physical Exam Vital signs obtained and entered by: ADALI Ludwig MA Blood Pressure: 118/62 (LEFT ARM) Cuff size: regular Heart Rate: 59 O2 Saturation: 97 Height: 4 ft 11 in Weight: 150 lb Body Mass Index: 30.2 BMI Classification: Obese Impression and Plan 1. Suspected Obstructive Sleep Apnea-Hypopnea Syndrome, as suggested by a history of loud and irregular snoring, observed cessation of breath while asleep, gasping or choking in sleep, morning headache, frequent awakening during the night, unrefreshed sleep, cognitive impairment, and excessive daytime sleepiness. Patient completed PSG but had severe insomnia and had limited sleep the night of study. I recommend proceeding to polysomnography to confirm the diagnosis and to assess severity. I obtained agreement to proceed. The pathophysiology of obstructive sleep apnea-hypopnea syndrome was discussed with the patient and health risks of cardiovascular and cerebrovascular disease if not treated. Risks of drowsy driving discussed in detail and patient advised to avoid long distance driving and to pulley maintainer at the first sign of drowsiness. Patient agreed to plan. * Schedule polysomnography/HST. * Avoid alcohol, sedative and muscle relaxant around bedtime. * Attempt to lose weight. * Review instructions provided by trained office staff on how to prepare for the sleep study. * Return for follow-up after sleep study completed. Counseling Topics: Weight loss health impact Visit Type: In Office Time Spent with Patient (minutes): 20 Provider Statement: I spent 100% of the Face to Face Visit with the patient with greater than 50% spent counseling the patient and coordination of care.
[2023-03-01 08:54] VITALS: BP 118/62
== END 2023-03-01 08:28 | disposition home or self-care (01) ==
LOC: SC 08:27
PROVIDERS: ATTEND Nurse Practitioner Family
DX: R06.83 Snoring (principal); R06.81 Apnea, not elsewhere classified; G47.8 Other sleep disorders; R51.9 Headache, unspecified; R41.89 Other symptoms and signs involving cognitive functions and awareness; G47.10 Hypersomnia, unspecified; G47.00 Insomnia, unspecified; E66.9 Obesity, unspecified; Z68.30 Body mass index [BMI] 30.0-30.9, adult
CPT/HCPCS: 99212; 99213

== ENCOUNTER 2023-04-20 09:26 | Outpatient (CLI) | payer OTHER | END 2023-04-20 09:27 | disposition home or self-care (01) | LOC: SC 09:26 | PROVIDERS: ATTEND Nurse Practitioner Family | DX: R09.02 Hypoxemia (principal) | CPT/HCPCS: 95806 ==

== ENCOUNTER 2023-05-19 15:11 | Outpatient (CLI) | payer OTHER ==
--- NOTE | 2023-05-19 15:47 | SLEEP CARE CONSULTATION ---
Information from patient questionnaire entered by Adali Kearns. I have reviewed and concur with the information entered by Adali Kearns. This document represents the service I personally performed and the decisions made by , Rossy Montelongo ARNP. History of Present Illness Service Date and Time: 05/19/2023 1511 Accompanied by: Spouse Initial [place] Sleepiness Scale score: 14 (12/29/22) Current [place] Sleepiness Scale score: 11 (05/19/23) Additional HPI information: AISHWARYA OSPINA returns for follow up with spouse and results of the recently performed home sleep study. The patient was informed of the following findings: No significant sleep disordered breathing with an average AHI of 1.8 and sahra oxygen saturation of 89%. I explained the pathophysiology behind obstructive sleep apnea. Patient does not have sleep apnea and was advised how weight gain could increase the risk of developing sleep apnea in the future. I strongly encouraged the patient to lose weight. Patient has light snoring. Snoring can be reduced by weight loss. Weight loss is best achieved with diet consult. Patient instructed to contact PCP for referral. Snoring can also be treated with an oral appliance from a dentist. Advised to check insurance coverage. In addition, an ENT evaluation can be do to see if other treatment is indicated. Patient does not drink alcohol. Patient was cautioned about risks of drowsy driving until sleepiness symptoms resolve. Patient denies drowsy driving (she does not drive). Sleep Study - Results Type of Sleep Study: Home sleep study (COMPLETED 04/20/23) Prior sleep studies: Yes Year and Where: [facility] 2011 Polysomnography/Home Sleep Study results: Physician Impression: The quality of the study is good. The length of the study is adequate (> 240 minutes). Please also see the tabulated and graphic data. 1. No significant sleep disordered breathing, with an AHI of 1.8/hr and sahra SaO2 of 89%. During the study, the patient had 2 apneas (2 obstructive, 0 central, 0 mixed) and 8 hypopneas. The longest episode lasted 120.5 seconds. The patient slept adequately in supine position (supine AHI was 1.7 and non-supine, 2.16). 2. Hypoxemia (ICD-10 R09.02), minimal, with the lowest oxygen saturation of 89 % and 0.1 minutes with SaO2 under 90%. Baseline oxygen saturation was normal (Average oxygen saturation was 95%). Allergies and Home Medications Known drug allergies: No Drug allergies reviewed: Yes Home medication list reviewed: Yes (no changes) Allergy and home medication list: Allergies No Known Drug Allergies Allergy (Verified 05/18/23 15:08) Review of Systems Review of systems same as previous: Yes (no changes) Physical Exam Vital signs obtained and entered by: ADALI Ludwig MA Blood Pressure: 128/76 (LEFT ARM) Cuff size: regular Heart Rate: 79 O2 Saturation: 98 Height: 4 ft 11 in Weight: 145 lb 12.8 oz Body Mass Index: 29.4 BMI Classification: Overweight Impression and Plan 1. Snoring but no significant sleep disordered breathing. Patient advised that often weight loss will reduce snoring as well as apnea risk. An oral appliance can also be used for snoring. This would require a dental consultation. Patient cautioned not to use other online appliances as can cause bite issues. A list of accredited dentists in [facility] and one local dentist who makes oral appliances is available in office as needed. Patient is advised to check if insurance will cover. An ENT consult can also be helpful to determine if any other treatment is an option. 2. Overweight, unspecified. Currently patients BMI is 29.4. Obesity increases the risk of apnea, CPAP pressure requirements and overall health risks especially cardiovascular and diabetes. Thus patient is advised to lose weight. * Attempt to lose weight * The patient is cautioned about driving until sleepiness is completely resolved. * Return as needed for follow up. Counseling Topics: Weight loss health impact Visit Type: In Office Time Spent with Patient (minutes): 13 Provider Statement: I spent 100% of the Face to Face Visit with the patient with greater than 50% spent counseling the patient and coordination of care.
[2023-05-19 15:52] VITALS: BP 128/76; O2SAT 98
== END 2023-05-19 15:12 | disposition home or self-care (01) ==
LOC: SC 15:11
PROVIDERS: ATTEND Nurse Practitioner Family
DX: R06.83 Snoring (principal); E66.3 Overweight; Z68.29 Body mass index [BMI] 29.0-29.9, adult
CPT/HCPCS: 99212

== ENCOUNTER 2023-06-16 12:24 | Emergency (ER) | payer OTHER ==
[2023-06-16 13:03] LABS: BASOPHILS # (AUTO) 0.1 10^3/uL (0.0-0.1); BASOPHILS % (AUTO) 0.7 %; EOSINOPHILS # (AUTO) 0.2 10^3/uL (0.0-0.7); EOSINOPHILS % (AUTO) 2.2 %; HCT - HEMATOCRIT 42.7 % (37.0-47.0); HGB - HEMOGLOBIN 14.5 g/dL (12.0-16.0); LYMPHOCYTES # (AUTO) 2.3 10^3/uL (1.5-3.5); LYMPHOCYTES % (AUTO) 28.6 %; MEAN CORPUSCULAR HEMOGLOBIN 29.8 pg (27.0-31.0); MEAN CORPUSCULAR VOLUME 87.7 fL (81.0-99.0); MEAN PLATELET VOLUME 9.4 fL (7.9-10.8); MONOCYTES # (AUTO) 0.5 10^3/uL (0.0-1.0); MONOCYTES % (AUTO) 6.5 %; NEUTROPHILS % (AUTO) 61.8 %; PLT - PLATELET COUNT 235 10^3/uL (130-450); RED BLOOD COUNT 4.87 10^6/uL (4.20-5.40); RED CELL DISTRIBUTION WIDTH 11.9 % (12.0-15.0); WHITE BLOOD COUNT 8.1 x10^3/uL (4.8-10.8)
[2023-06-16 13:16] LABS: POTASSIUM 3.8 mmol/L (3.5-4.5)
[2023-06-16 13:17] LABS: ALBUMIN 4.6 g/dL (3.2-5.5); ALBUMIN/GLOBULIN RATIO 1.3 (1.0-2.2); BILIRUBIN,TOTAL 0.7 mg/dL (0.2-1.0); CREATININE 1.3 mg/dL (0.6-1.3); TOTAL PROTEIN 8.1 g/dL (6.4-8.9)
[2023-06-16 13:44] LABS: TROPONIN I HIGH SENSITIVITY 20.3 ng/L (2.3-14.8)
--- NOTE | 2023-06-16 13:50 | XRAY Report ---
PROCEDURE: Chest 1 View X-Ray INDICATIONS: Chest pain TECHNIQUE: One view of the chest was acquired. COMPARISON: None. FINDINGS: Surgical changes and devices: None. Lungs and pleura: No pleural effusions or pneumothorax. Lungs are clear. Mediastinum: Mediastinal contours appear normal. Heart size is normal. Bones and chest wall: No suspicious bony lesions. Overlying soft tissues appear unremarkable. IMPRESSION: No acute cardiopulmonary process. Reviewed by: Fredrick Barajas on 06/16/2023 1:49 PM PDT Approved by: Fredrick Barajas on 06/16/2023 1:49 PM PDT Station ID: [id number]
[2023-06-16] MEDS ORDERED: NITROGLYCERIN SL 0.4 MG TABLET SL STA (13:51)
[2023-06-16] MEDS ORDERED: ONDANSETRON 4 MG/2 ML VIAL IVP STA (13:51)
[2023-06-16] MEDS ORDERED: MORPHINE 2 MG/ML CARPUJECT IVP STA (13:52)
--- NOTE | 2023-06-16 13:55 | ED Physician Documentation ---
History of Present Illness - Stated complaint Stated Complaint: CP/BACK PX/SOA - Chief complaint Chief Complaint: Cardiac - Additonal information Additional information: 62-year-old female who has past medical history most significant for hyp othyroidism, diabetes and hypertension presents to the emergency department for evaluation of chest pain with radiation to the back. Patient states she has been having this back pain off and on for several years and was told that it was musculoskeletal but she has never had a component of chest pain. No fevers. She is not vomiting. She appears exquisitely uncomfortable. Chest pain event began about 12 PM. Denies any previous history of CO, stroke or aortic aneurysm/dissection. Meds: Levothyroxine 112 mics daily Metoprolol 12.5 mg twice daily Atorvastatin 20 mg once daily Metformin 500 mg 3 times daily Pepcid 20 mg twice daily Review of Systems Constitutional: denies: Fever Cardiac: reports: Chest pain / pressure Respiratory: denies: Dyspnea, Cough GI: reports: Vomiting Musculoskeletal: reports: Back pain Neurologic: reports: Reviewed and negative PD PAST MEDICAL HISTORY - Past Medical History Cardiovascular: Hypertension Neuro: None Endocrine/Autoimmune: Type 2 diabetes, HyPOthyroidism Psych: Eating disorder Musculoskeletal: Chronic back pain - Past Surgical History Past Surgical History: Yes - Present Medications Home Medications: Ambulatory Orders Medication Instructions Recorded Confirmed Cholecalciferol (Vitamin D3) 1,000 unit PO DAILY 03/01/13 05/19/23 [Vitamin D] Levothyroxine [Synthroid] 112 mcg PO QDAC 03/01/13 05/19/23 Metoprolol Succinate 12.5 mg PO BID 03/01/13 05/19/23 Exlax See Rx Instructions .ROUTE .COMPLEX 01/20/23 05/19/23 Famotidine [Acid-Pep] See Rx Instructions .ROUTE .COMPLEX 01/20/23 05/19/23 Ibuprofen [Motrin Ib] See Rx Instructions .ROUTE .COMPLEX 01/20/23 05/19/23 Meclizine HCl [Dramamine] See Rx Instructions .ROUTE .COMPLEX 01/20/23 05/19/23 Simvastatin [Zocor] See Rx Instructions .ROUTE .COMPLEX 01/20/23 05/19/23 - Allergies Allergies/Adverse Reactions: Allergies Allergy/AdvReac Type Severity Reaction Status Date / Time meloxicam Allergy Itching Verified 06/16/23 12:28 - Social History Does the pt smoke?: No Smoking Status: Never smoker Does the pt drink ETOH?: No Does the pt have substance abuse?: No - Immunizations Immunizations are current?: Yes - POLST Patient has POLST: No PD ED PE NORMAL - General General: Alert and oriented X 3. No: No acute distress (in pain) - HEENT HEENT: Atraumatic - Neck Neck: Supple, no meningeal sign - Cardiac Cardiac: RRR, No murmur - Respiratory Respiratory: No respiratory distress, Clear bilaterally - Abdomen Abdomen: Normal bowel sounds, Soft, Other (No abdominal bruit or pulsatile mass) - Back Back: No CVA TTP, No spinal TTP - Derm Derm: Normal color, Warm and dry, No rash - Neuro Neuro: Alert and oriented X 3, housefellow 2-12 intact Eye Opening: Spontaneous Motor: Obeys Commands Verbal: Oriented GCS Score: 15 Results - Vitals Vitals: Vital Signs - 24 hr 06/16/23 06/16/23 06/16/23 12:28 13:41 14:05 Temperature 36.8 C Heart Rate 81 65 65 Respiratory 22 18 25 H Rate Blood Pressure 150/90 H 213/94 H 180/57 H O2 Saturation 96 95 90 L 06/16/23 14:10 Temperature Heart Rate Respiratory Rate Blood Pressure O2 Saturation 87 L Oxygen O2 Source Room air - EKG (time done) 1240 EKG releavant findings:: EKG personally interpreted by author of this note. Relevant findings are: Rate: Rate (enter#) (67) Rhythm: NSR [place]: Normal Intervals: Normal SC. No: Prolonged QT Ischemia: ST elevation c/w ischemia, Q waves (inferior), Other (Reciprocal changes in the inferior leads.) Compare to prior EKG: Changed from prior EKG Computer interpretation: Agree with computer - Labs Labs: Laboratory Tests 06/16/23 06/16/23 06/16/23 12:55 12:55 12:55 WBC 8.1 RBC 4.87 Hgb 14.5 Hct 42.7 MCV 87.7 MCH 29.8 MCHC 34.0 RDW 11.9 L Plt Count 235 MPV 9.4 Neut # (Auto) 5.0 Lymph # (Auto) 2.3 [place] # (Auto) 0.5 Eos # (Auto) 0.2 Baso # (Auto) 0.1 Absolute Nucleated RBC 0.00 Nucleated RBC % 0.0 Sodium 139 Potassium 3.8 Chloride 105 Carbon Dioxide 22 Anion Gap 12.0 BUN 20 Creatinine 1.3 Estimated GFR (MDRD) 42 L Glucose 289 H Calcium 10.0 Total Bilirubin 0.7 AST 16 ALT 15 Alkaline Phosphatase 58 Troponin I High Sens 20.3 H* B-Natriuretic Peptide 171 H Total Protein 8.1 Albumin 4.6 Globulin 3.5 Albumin/Globulin Ratio 1.3 Lipase 63 TSH 06/16/23 14:02 WBC RBC Hgb Hct MCV MCH MCHC RDW Plt Count MPV Neut # (Auto) Lymph # (Auto) [place] # (Auto) Eos # (Auto) Baso # (Auto) Absolute Nucleated RBC Nucleated RBC % Sodium Potassium Chloride Carbon Dioxide Anion Gap BUN Creatinine Estimated GFR (MDRD) Glucose Calcium Total Bilirubin AST ALT Alkaline Phosphatase Troponin I High Sens 45.4 H* B-Natriuretic Peptide Total Protein Albumin Globulin Albumin/Globulin Ratio Lipase TSH 0.01 L - Rads (name of study) cxr Relevant Findings:: Final report received (no acute cardiopulmonary process) PD Medical Decision Making - ED course Complexity details: reviewed results, d/w patient, d/w family ED course: 62-year-old female with a history of hypertension, diabetes and hypothyroidism presents the emergency department for evaluation of substernal chest pain radiating to her back. Symptoms began about 12 PM. On presentation the emergency department she appears uncomfortable and in pain. Her EKG does show some mild ST elevation in the anterior leads with Q waves and reciprocal changes inferiorly. Initial troponin was 20 (HIGH SENSITIVITY). Patient was loaded with 325 mg aspirin and started on a heparin via cardiac protocol infusion as well as administered 5 mg metoprolol IV adn 4 mg of morphine. She has been hypertensive during the ED stay CBC was unremarkable. Electrolytes negative with the exception of hyperglycemia the glucose of 289. A chest x-ray showed no evidence of pneumonia and pneumothorax or pleural effusion. I spoke with Dr. Bhat ED attending at [facility] and patient is excepted in transfer. I have notified the patient and her of the need to transfer to a tertiary hospital with higher level of care/cardiac services. She will go via [facility]. Impression STEMI Condition: serious - Critical Care Time(min): 30 Time Includes: Direct patient care, Review records, Reassess patient Data interpretation: Labs, Prior EKG Departure - Departure Disposition: 02 Transfer Acute Care Hosp Clinical Impression: STEMI (ST elevation myocardial infarction) Qualifiers: Involved coronary artery: unspecified coronary artery Qualified Code(s): I21.3 - ST elevation (STEMI) myocardial infarction of unspecified site Condition: Critical Forms: PCP List Discharge Date/Time: 06/16/23 14:50
[2023-06-16] MEDS ORDERED: ASPIRIN CHEW 81 MG TABLET PO STA (13:59)
[2023-06-16 14:10] VITALS: BP 180/57
[2023-06-16] MEDS ORDERED: METOPROLOL 5 MG/5 ML VIAL IVP STA (14:17)
[2023-06-16 14:19] VITALS: O2SAT 87
[2023-06-16 14:34] LABS: TROPONIN I HIGH SENSITIVITY 45.4 ng/L (2.3-14.8)
[2023-06-16 14:39] LABS: THYROID STIMULATING HORMONE 0.01 uIU/mL (0.34-5.60)
[2023-06-16] MEDS ORDERED: HEPARIN 25000UNITS/500ML (D5W) 25,000 UNIT/500 ML BAG IV SCH (15:00)
== END 2023-06-16 14:50 | disposition short-term general hospital (02) ==
LOC: ED 12:24
DX: I21.3 ST elevation (STEMI) myocardial infarction of unspecified site (principal); I10 Essential (primary) hypertension
CPT/HCPCS: 36415; 71045; 80053; 83690; 83880; 84443; 84484; 85025; 93005; 96374; 96375; 99285; 99291; A9270

== ENCOUNTER 2023-07-02 10:56 | Outpatient (CLI) | payer OTHER ==
--- NOTE | 2023-07-02 12:37 | XRAY Report ---
PROCEDURE: Chest 2 View X-Ray INDICATIONS: COUGH TECHNIQUE: 2 views of the chest were acquired. COMPARISON: Chest x-ray 06/16/2023 FINDINGS: Surgical changes and devices: None. Lungs and pleura: No pleural effusions or pneumothorax. Lungs are clear. Mediastinum: Mediastinal contours appear normal. Heart size is enlarged. Bones and chest wall: No suspicious bony lesions. Overlying soft tissues appear unremarkable. IMPRESSION: No acute cardiopulmonary process. Reviewed by: Marcie Chun MD on 07/02/2023 12:36 PM PDT Approved by: Marcie Chun MD on 07/02/2023 12:36 PM PDT Station ID: [id number]
== END 2023-07-02 10:57 | disposition home or self-care (01) ==
LOC: DI 10:56
PROVIDERS: ATTEND Physician Assistant
DX: R05.9 Cough, unspecified (principal)

== ENCOUNTER 2023-07-10 14:51 | Outpatient (CLI) | payer OTHER | END 2023-07-10 14:52 | disposition home or self-care (01) | LOC: RT 14:51 | PROVIDERS: ATTEND Physician Assistant | DX: Z53.9 Procedure and treatment not carried out, unspecified reason (principal) ==

== ENCOUNTER 2023-07-27 14:43 | Outpatient (CLI) | payer OTHER ==
[2023-07-27] MEDS: ALBUTEROL 1 PUFF INH STA (16:21)
== END 2023-07-27 14:44 | disposition home or self-care (01) ==
LOC: RT 14:43
PROVIDERS: ATTEND Physician Assistant
DX: R07.9 Chest pain, unspecified (principal); R06.09 Other forms of dyspnea
CPT/HCPCS: 94010; 94060; 94729

== ENCOUNTER 2023-08-22 12:03 | Outpatient (CLI) | payer OTHER ==
[2023-08-22] MEDS ORDERED: iohexoL-300 100 ML VIAL IVP ONE (14:02)
--- NOTE | 2023-08-22 15:20 | CT Report ---
PROCEDURE: CT chest with contrast INDICATIONS: ABN PFT, COUGH TECHNIQUE: Helical axial CT of the chest was obtained after an intravenous contrast injection and ref ormatted in multiple planes. Radiation dose reduction was achieved using automated exposure control, adjustment of mA and/or kV according to patient size. COMPARISON: None FINDINGS: Lungs and pleura: Peripheral biapical tree-in-bud pattern without focal alveolar infiltrate. Pleural spaces are clear. Mediastinum: Heart size is mildly enlarged No pericardial effusion. No large vessel abnormality. No m ediastinal adenopathy by size criteria. Chest wall and lower neck: Thyroid is unremarkable. No axillary or supraclavicular adenopathy by size . Bones: No aggressive osseous abnormality. Upper Abdomen: Hepatic fatty infiltration without focal mass lesion IMPRESSION: Biapical tree-in-bud interstitial pattern may reflect an atypical infectious or inflammatory process (fungal fungal infection. Cardiomegaly without vascular congestion Reviewed by: Abdirahman Oropeza MD on 08/22/2023 2:19 PM AKST Approved by: Abdirahman Oropeza MD on 08/22/2023 2:19 PM AKST Station ID: [id number]
== END 2023-08-22 12:04 | disposition home or self-care (01) ==
LOC: DI 12:03
PROVIDERS: ATTEND Physician Assistant
DX: R94.2 Abnormal results of pulmonary function studies (principal); R05.9 Cough, unspecified; I51.7 Cardiomegaly; R91.8 Other nonspecific abnormal finding of lung field; Z79.899 Other long term (current) drug therapy
CPT/HCPCS: 36415; 71260; 80053; Q9967

== ENCOUNTER 2023-08-22 12:05 | Outpatient (CLI) | payer OTHER ==
[2023-08-22 12:41] LABS: ALBUMIN 4.6 g/dL (3.2-5.5); ALBUMIN/GLOBULIN RATIO 1.2 (1.0-2.2); BILIRUBIN,TOTAL 0.4 mg/dL (0.2-1.0); CALCIUM 10.6 mg/dL (8.5-10.3); CREATININE 1.2 mg/dL (0.6-1.3); POTASSIUM 4.6 mmol/L (3.5-4.5); TOTAL PROTEIN 8.3 g/dL (6.4-8.9)
== END 2023-08-22 12:06 | disposition home or self-care (01) ==
LOC: LAB 12:05
PROVIDERS: ATTEND Physician Assistant
DX: Z79.899 Other long term (current) drug therapy (principal)
CPT/HCPCS: 36415; 80053

== ENCOUNTER 2023-10-04 01:26 | Outpatient (CLI) | payer OTHER | END 2023-10-04 23:59 | disposition critical access hospital (66) | LOC: EMS 01:26 | DX: M25.512 Pain in left shoulder (principal); M54.2 Cervicalgia; R07.89 Other chest pain; I10 Essential (primary) hypertension | CPT/HCPCS: A0425; A0429 ==

== ENCOUNTER 2023-10-04 01:47 | Emergency (ER) | payer OTHER ==
--- NOTE | 2023-10-04 01:47 | ED Physician Documentation ---
PD HPI CHEST PAIN - Stated complaint Stated Complaint: L SHOULDER PX - History obtained from History obtained from: Patient - Additional information Additional information: BIBA. HPI from patient. Patient woke from sleep at home in bed at approximately 00:45 this morning with anterior left shoulder pain radiating around to left upper back and left upper anterior chest, down left arm to proximal arm. This is associated with dyspnea/shortness of breath. Denies nausea, vomiting. Has not had this before. She has coronary artery stents. There are no exacerbating nor ameliorating factors. The symptoms have already nearly resolved by the time of this H+P. Review of Systems Cardiac: reports: Chest pain / pressure. denies: Palpitations, Pedal edema, Calf pain Respiratory: reports: Dyspnea. denies: Cough, Wheezing GI: reports: Reviewed and negative Musculoskeletal: reports: Reviewed and negative Neurologic: reports: Reviewed and negative PD PAST MEDICAL HISTORY - Past Medical History Past Medical History: Yes Cardiovascular: Hypertension, High cholesterol, Coronary artery disease Endocrine/Autoimmune: HyPOthyroidism GI: GERD - Past Surgical History Past Surgical History: Yes Cardiovascular: Coronary stent - Present Medications Home Medications: Ambulatory Orders Medication Instructions Recorded Confirmed Cholecalciferol (Vitamin D3) 1,000 unit PO DAILY 03/01/13 05/19/23 [Vitamin D] Levothyroxine [Synthroid] 112 mcg PO QDAC 03/01/13 05/19/23 Metoprolol Succinate 12.5 mg PO BID 03/01/13 05/19/23 Exlax See Rx Instructions .ROUTE .COMPLEX 01/20/23 05/19/23 Famotidine [Acid-Pep] See Rx Instructions .ROUTE .COMPLEX 01/20/23 05/19/23 Ibuprofen [Motrin Ib] See Rx Instructions .ROUTE .COMPLEX 01/20/23 05/19/23 Meclizine HCl [Dramamine] See Rx Instructions .ROUTE .COMPLEX 01/20/23 05/19/23 Simvastatin [Zocor] See Rx Instructions .ROUTE .COMPLEX 01/20/23 05/19/23 - Allergies Allergies/Adverse Reactions: Allergies Allergy/AdvReac Type Severity Reaction Status Date / Time meloxicam Allergy Itching Verified 06/16/23 12:28 PD ED PE NORMAL - Vitals Vital signs reviewed: Yes - General General: Alert and oriented X 3, No acute distress, Well developed/nourished - Neck Neck: Supple, no meningeal sign - Cardiac Cardiac: RRR, No murmur, No gallop, No rub - Respiratory Respiratory: No respiratory distress, Clear bilaterally - Abdomen Abdomen: Soft, Non tender - Derm Derm: Normal color, Warm and dry - Extremities Extremities: No edema - Neuro Neuro: Alert and oriented X 3 Results - Vitals Vitals: Oxygen O2 Source Room air - EKG (time done) No standard instances EKG releavant findings:: EKG personally interpreted by author of this note. Relevant findings are: Rate: Rate (enter#) (71) Rhythm: NSR Plummer: LAD Intervals: Normal SC QRS: Normal Ischemia: Q waves (II, III, aVF), T wave inversion (V2-V5, flat V6) Compare to prior EKG: Changed from prior EKG (Q waves and T inversions are new compared to 06/16/23 but note that the 06/16/23 was when patient was having HI and had (different) changes in same leads) - Labs Labs: Laboratory Tests 10/04/23 10/04/23 10/04/23 01:56 01:56 01:56 WBC 9.0 RBC 4.51 Hgb 12.9 Hct 40.3 MCV 89.4 MCH 28.6 MCHC 32.0 RDW 12.8 Plt Count 219 MPV 9.5 Neut # (Auto) 6.5 Lymph # (Auto) 1.6 [place] # (Auto) 0.7 Eos # (Auto) 0.2 Baso # (Auto) 0.1 Absolute Nucleated RBC 0.00 Nucleated RBC % 0.0 Sodium 140 Potassium 3.6 Chloride 109 Carbon Dioxide 22 Anion Gap 9.0 BUN 19 Creatinine 0.9 Estimated GFR (MDRD) 64 L Glucose 125 H Calcium 9.8 Total Bilirubin 0.6 AST 15 ALT 13 Alkaline Phosphatase 43 Troponin I High Sens 19.9 H* Total Protein 7.4 Albumin 4.1 Globulin 3.3 Albumin/Globulin Ratio 1.2 Lipase 62 10/04/23 04:15 WBC RBC Hgb Hct MCV MCH MCHC RDW Plt Count MPV Neut # (Auto) Lymph # (Auto) [place] # (Auto) Eos # (Auto) Baso # (Auto) Absolute Nucleated RBC Nucleated RBC % Sodium Potassium Chloride Carbon Dioxide Anion Gap BUN Creatinine Estimated GFR (MDRD) Glucose Calcium Total Bilirubin AST ALT Alkaline Phosphatase Troponin I High Sens 20.7 H* Total Protein Albumin Globulin Albumin/Globulin Ratio Lipase - Rads (name of study) chest xray Relevant Findings:: Prelim report reviewed, See rad report PD Medical Decision Making - ED course Complexity details: reviewed results, re-evaluated patient, considered differential, d/w patient ED course: No findings on EKG to suggest ACS. Normal CXR, CBC, and ER abdominal panel. The hs-cTn is minimally elevated (19.9) and 2-hour repeat is 20.7, representing insignificant change from initial value. She is asymptomatic on arrival as well as on reevaluation. Results d/w patient, return precautions reviewed. I advised her to contact her recovery operator helper or PCP to arrange for next available appointment for reevaluation. Departure - Departure Disposition: 01 Home, Self Care Clinical Impression: Chest pain Qualifiers: Chest pain type: unspecified Qualified Code(s): R07.9 - Chest pain, unspecified Condition: Good Instructions: ED Chest Pain Atypical Unkn Cause Comments: There were no concerning findings on the EKG nor chest x-ray. Your blood tests were almost entirely normal. Notably, your cardiac enzyme blood test was just slightly higher than the normal range. Fortunately, a 2-hour repeat of this same test shows that the level is without significant change from the first draw; what this means is that your symptoms are unlikely to be due to angina/heart attack. These test do not rule out that possibility, but it seems unlikely at this point. The cause of your symptoms remains unclear at this time. Contact your primary care provider when their office is next open to arrange for the next available appointment for reevaluation. Even if your symptoms do not recur, further testing might be needed. Forms: PCP List Discharge Date/Time: 10/04/23 05:40
[2023-10-04 01:58] LABS: BASOPHILS # (AUTO) 0.1 10^3/uL (0.0-0.1); BASOPHILS % (AUTO) 0.6 %; EOSINOPHILS # (AUTO) 0.2 10^3/uL (0.0-0.7); EOSINOPHILS % (AUTO) 2.2 %; HCT - HEMATOCRIT 40.3 % (37.0-47.0); HGB - HEMOGLOBIN 12.9 g/dL (12.0-16.0); LYMPHOCYTES # (AUTO) 1.6 10^3/uL (1.5-3.5); LYMPHOCYTES % (AUTO) 17.4 %; MEAN CORPUSCULAR HEMOGLOBIN 28.6 pg (27.0-31.0); MEAN CORPUSCULAR VOLUME 89.4 fL (81.0-99.0); MEAN PLATELET VOLUME 9.5 fL (7.9-10.8); MONOCYTES # (AUTO) 0.7 10^3/uL (0.0-1.0); MONOCYTES % (AUTO) 7.4 %; NEUTROPHILS # (AUTO) 6.5 10^3/uL (1.5-6.6); NEUTROPHILS % (AUTO) 72.3 %; PLT - PLATELET COUNT 219 10^3/uL (130-450); RED BLOOD COUNT 4.51 10^6/uL (4.20-5.40); RED CELL DISTRIBUTION WIDTH 12.8 % (12.0-15.0)
--- NOTE | 2023-10-04 02:15 | XRAY Report ---
PROCEDURE: Chest 1V INDICATIONS: chest pain TECHNIQUE: One view of the chest was acquired. COMPARISON: Chest x-ray, two-view, 07/02/2023. FINDINGS: Surgical changes and devices: None. Lungs and pleura: No pleural effusions or pneumothorax. Lungs are clear. Mediastinum: Mediastinal contours appear normal. Heart size is normal. Bones and chest wall: No suspicious bony lesions. Overlying soft tissues appear unremarkable. IMPRESSION: No acute cardiopulmonary process. Reviewed by: Mikaela Orr MD on 10/04/2023 2:14 AM PST Approved by: Mikaela Orr MD on 10/04/2023 2:14 AM PST Station ID: [id number]
[2023-10-04 02:24] LABS: BILIRUBIN,TOTAL 0.6 mg/dL (0.2-1.0); CALCIUM 9.8 mg/dL (8.5-10.3); CREATININE 0.9 mg/dL (0.6-1.3); POTASSIUM 3.6 mmol/L (3.5-4.5)
[2023-10-04 02:25] LABS: ALBUMIN 4.1 g/dL (3.2-5.5); ALBUMIN/GLOBULIN RATIO 1.2 (1.0-2.2); TOTAL PROTEIN 7.4 g/dL (6.4-8.9)
[2023-10-04 03:08] VITALS: O2SAT 98
[2023-10-04 06:56] VITALS: BP 164/81
== END 2023-10-04 05:40 | disposition home or self-care (01) ==
LOC: EDUNIT# → ED 01:47
DX: M25.512 Pain in left shoulder (principal); R06.09 Other forms of dyspnea; R07.9 Chest pain, unspecified; I10 Essential (primary) hypertension; Z95.5 Presence of coronary angioplasty implant and graft
CPT/HCPCS: 36415; 80053; 83690; 84484; 85025; 93005; 99283; 99284